=== PATIENT | male | born 1985 | race Caucasian/White ===

== ENCOUNTER 2017-03-24 22:39 | Observation (INO) | payer OTHER ==
[2017-03-24] MEDS ORDERED: Ondansetron 4 MG/2 ML SDV IVPUSH ONE (22:55)
[2017-03-24] MEDS ORDERED: Sodium Chloride 0.9% 1,000 ML IV STA (22:55)
[2017-03-24] MEDS ORDERED: Sodium Chloride 0.9% 10 ML Syringe FLUSH PRN (22:55)
[2017-03-24] MEDS ORDERED: HYDROmorphone 1 MG/ML Syringe IVPUSH ONE ×2 (22:56→23:53)
--- NOTE | 2017-03-25 00:05 | EDM.PDOC ---
ED HPI GENERAL MEDICAL PROBLEM - General Chief Complaint: Abdominal Pain Stated Complaint: POSS GULLBLADDER PAIN Time Seen by Provider: 03/24/17 22:52 Source of Information: Reports: Patient History Limitations: Reports: No Limitations - History of Present Illness INITIAL COMMENTS - FREE TEXT/NARRATIVE: The patient presents with RUQ abdominal pain and nausea. This started last week Saturday. He was in [place] and right after eating dinner he developed the pain. He had an US done that showed stones. He saw Dr Darling and he is scheduled to have his gallbladder removed tomorrow at noon. He ate dinner tonight around 8:30 and the pain returned. He has nausea but no vomiting. He has no fever or chills. He has no chest pain or shortness of breath. Onset: Sudden Duration: Hour(s): Location: Reports: Abdomen (RUQ) Quality: Reports: Sharp Severity: Severe Improves with: Reports: None Worsens with: Reports: None Context: Reports: Other (This started after he ate) Associated Symptoms: Reports: Nausea/Vomiting. Denies: Chest Pain, Cough, Fever /Chills, Headaches, Shortness of Breath Right Abdomen Pain Score (Numeric/FACES): 8 - Related Data Allergies Allergy/AdvReac Type Severity Reaction Status Date / Time meloxicam AdvReac Ringing in Verified 03/22/17 12:15 the Ears Home Meds: Home Meds . 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 Musculoskeletal History: Reports: None Neurological History: Reports: None Psychiatric History: Reports: None Endocrine/Metabolic History: Reports: None Hematologic History: Reports: None Immunologic History: Reports: None Oncologic (Cancer) History: Reports: None Dermatologic History: Reports: None - Infectious Disease History Infectious Disease History: Reports: Mononucleosis - Past Surgical History HEENT Surgical History: Reports: Oral Surgery Cardiovascular Surgical History: Reports: None Respiratory Surgical History: Reports: None GI Surgical History: Reports: Hernia Repair/Other Male Surgical History: Reports: None Endocrine Surgical History: Reports: None Neurological Surgical History: Reports: None Musculoskeletal Surgical History: Reports: None Oncologic Surgical History: Reports: None Dermatological Surgical History: Reports: None Social & Family History - Family History Family Medical History: Noncontributory - Tobacco Use Smoking Status *Q: Never Smoker - Caffeine Use Caffeine Use: Reports: None - Recreational Drug Use Recreational Drug Use: No Drug Use in Last 12 Months: No ED ROS GENERAL - Review of Systems Review Of Systems: See Below Constitutional: Reports: No Symptoms HEENT: Reports: No Symptoms Respiratory: Reports: No Symptoms Cardiovascular: Reports: No Symptoms Endocrine: Reports: No Symptoms GI/Abdominal: Reports: Abdominal Pain, Nausea. Denies: Diarrhea, Vomiting : Reports: No Symptoms Musculoskeletal: Reports: No Symptoms Skin: Reports: No Symptoms Neurological: Reports: No Symptoms ED EXAM, GI/ABD - Physical Exam Exam: See Below Exam Limited By: No Limitations General Appearance: Alert, No Apparent Distress Ears: Normal External Exam Nose: Normal Inspection Head: Atraumatic, Normocephalic Neck: Normal Inspection Respiratory/Chest: No Respiratory Distress, Lungs Clear, Normal Breath Sounds Cardiovascular: Regular Rate, Rhythm, No Edema, No Murmur GI/Abdominal Exam: Soft, No Organomegaly, Tender (Moderate to severe pain) Course - Vital Signs Last Recorded V/S: Last Vital Signs Temp 98.0 F 03/24/17 22:51 Pulse 65 03/24/17 22:51 Resp 20 03/24/17 22:51 BP 153/91 H 03/24/17 22:51 Pulse Ox 100 03/24/17 22:51 - Orders/Labs/Meds Orders: Active Orders 24 hr Category Date Time Status Peripheral IV Care [RC] . DIRECTED Care 03/24/17 22:56 Active Sodium Chloride 0.9% [Saline Flush] Med 03/24/17 22:55 Active 10 ml FLUSH ASDIRECTED PRN ED Antiemetic Medication Reflex [OM.PC] Stat Oth 03/24/17 22:55 Ordered Peripheral IV Insertion Adult [OM.PC] Stat Oth 03/24/17 22:55 Ordered Medication Orders Sodium Chloride (Saline Flush) 10 ml FLUSH ASDIRECTED PRN PRN Reason: Keep Vein Open Last Admin: 03/24/17 23:06 Dose: 10 ml Labs: Laboratory Tests 10/22/17 10/22/17 Range/Units 22:05 23:05 WBC 9.79 H (4.23-9.07) K/mm3 RBC 5.75 (4.63-6.08) M/mm3 Hgb 16.1 (13.7-17.5) gm/L Hct 46.9 (40.1-51.0) % MCV 81.6 (79.0-92.2) fl MCH 28.0 (25.7-32.2) pg MCHC 34.3 (32.2-35.5) g/dl RDW Std Deviation 41.3 (35.1-43.9) fL Plt Count 275 (163-337) K/mm3 MPV 10.3 (9.4-12.3) fl Neut % (Auto) 66.2 (34.0-67.9) % Lymph % (Auto) 23.2 (21.8-53.1) % [place] % (Auto) 8.7 (5.3-12.2) % Eos % (Auto) 1.2 (0.8-7.0) Baso % (Auto) 0.5 (0.1-1.2) % Neut # (Auto) 6.48 H (1.78-5.38) K/mm3 Lymph # (Auto) 2.27 (1.32-3.57) K/mm3 [place] # (Auto) 0.85 H (0.30-0.82) K/mm3 Eos # (Auto) 0.12 (0.04-0.54) K/mm3 Baso # (Auto) 0.05 (0.01-0.08) K/mm3 Sodium 142 (136-145) mEq/L Potassium 3.5 (3.5-5.1) mEq/L Chloride 106 (98-107) mEq/L Carbon Dioxide 27 (21-32) mEq/L Anion Gap 12.5 (5-15) BUN 15 (7-18) mg/dL Creatinine 1.3 (0.7-1.3) mg/dL Est Cr Clr Drug Dosing 83.84 mL/min Estimated GFR (MDRD) > 60 (>60) mL/min BUN/Creatinine Ratio 11.5 L (14-18) Glucose 104 (74-106) mg/dL Calcium 9.7 (8.5-10.1) mg/dL Total Bilirubin 0.8 (0.2-1.0) mg/dL AST 75 H (15-37) U/L ALT 95 H (16-63) U/L Alkaline Phosphatase 52 (46-116) U/L Total Protein 7.3 (6.4-8.2) g/dl Albumin 3.9 (3.4-5.0) g/dl Globulin 3.4 gm/dL Albumin/Globulin Ratio 1.2 (1-2) Lipase 268 (73-393) U/L Meds: Medications Generic Name Dose Route Start Last Admin Trade Name Freq PRN Reason Stop Dose Admin Sodium Chloride 10 ml 03/24/17 22:55 03/24/17 23:06 Saline Flush FLUSH 10 ml ASDIRECTED PRN Administration Keep Vein Open Discontinued Medications Generic Name Dose Route Start Last Admin Trade Name Freq PRN Reason Stop Dose Admin Hydromorphone HCl 1 mg 03/24/17 22:56 03/24/17 23:07 Dilaudid IVPUSH 03/24/17 22:57 1 mg ONETIME ONE Administration Hydromorphone HCl 1 mg 03/24/17 23:53 03/25/17 00:09 Dilaudid IVPUSH 03/24/17 23:54 1 mg ONETIME ONE Administration Sodium Chloride 1,000 mls @ 1,000 mls/hr 03/24/17 22:55 03/24/17 23:11 Normal Saline IV 03/24/17 23:54 1,000 mls/hr .BOLUS STA Administration Ondansetron HCl 4 mg 03/24/17 22:55 03/24/17 23:05 Zofran IVPUSH 03/24/17 22:56 4 mg ONETIME ONE Administration - Re-Assessments/Exams Free Text/Narrative Re-Assessment/Exam: 03/25/17 00:06 I ordered an IV NS 1L bolus, zofran 4mg IV, dilaudid 1mg IV, and labs. His WBC was slightly elevated at 9.79. His AST was elevated at 75. His ALT was elevated at 95. Her lipase was negative. He had more pain so I ordered more dilaudid 1mg IV. 03/25/17 01:03 He is still having pain. I ordered dilaudid 0.5mg IV. I do not think I can send him home like this. I will have to admit to observation and have Dr Darling take over in the morning. Departure - Departure Time of Disposition: 01:05 Disposition: Refer to Observation Clinical Impression: Biliary colic Abdominal pain Qualifiers: Abdominal location: right upper quadrant Qualified Code(s): R10.11 - Right upper quadrant pain Cholelithiasis Qualifiers: Cholelithiasis location: gallbladder Cholecystitis presence: without cholecystitis Biliary obstruction: without biliary obstruction Qualified Code(s) : K80.20 - Calculus of gallbladder without cholecystitis without obstruction - Discharge Information - My Orders Last 24 Hours: My Active Orders 03/24/17 22:55 Sodium Chloride 0.9% [Saline Flush] 10 ml FLUSH ASDIRECTED PRN ED Antiemetic Medication Reflex [OM.PC] Stat Peripheral IV Insertion Adult [OM.PC] Stat 03/24/17 22:56 Peripheral IV Care [RC] . DIRECTED - Assessment/Plan Last 24 Hours: My Active Orders 03/24/17 22:55 Sodium Chloride 0.9% [Saline Flush] 10 ml FLUSH ASDIRECTED PRN ED Antiemetic Medication Reflex [OM.PC] Stat Peripheral IV Insertion Adult [OM.PC] Stat 03/24/17 22:56 Peripheral IV Care [RC] . DIRECTED
[2017-03-25] MEDS ORDERED: HYDROmorphone 0.5 MG/0.5 ML Syringe IVPUSH ONE (01:07)
[2017-03-25] MEDS ORDERED: Ondansetron 4 MG/2 ML SDV IVPUSH PRN (01:58)
[2017-03-25] MEDS ORDERED: HYDROmorphone 0.5 MG/0.5 ML Syringe IVPUSH PRN (01:58)
[2017-03-25] MEDS ORDERED: Sodium Chloride 0.9% 1,000 ML IV SCH (02:00)
--- NOTE | 2017-03-25 10:26 | PCM.PREANE ---
Preanesthetic Assessment - Procedure Proposed Procedure: Lap Maddi - Anesthesia/Transfusion/Family Hx Anesthesia History: Prior Anesthesia Without Reaction (wisdom teeth extraction) Family History of Anesthesia Reaction: No Transfusion History: No Prior Transfusion(s) Intubation History: Unknown - Review of Systems General: No Symptoms Pulmonary: No Symptoms Cardiovascular: No Symptoms Gastrointestinal: No Symptoms Neurological: No Symptoms Other: Reports: None - Physical Assessment NPO Status Date: 03/25/17 NPO Status Time: 02:30 Pulse: 84 O2 Sat by Pulse Oximetry: 98 Respiratory Rate: 14 Blood Pressure: 121/68 Temperature: 36.3 C Vital Signs: Last Vital Signs Temp 36.3 C 03/25/17 09:37 Pulse 84 03/25/17 09:37 Resp 14 03/25/17 09:37 BP 121/68 03/25/17 09:37 Pulse Ox 98 03/25/17 09:37 Height: 1.75 m Weight: 106.957 kg ASA Class: 2 Mental Status: Alert & Oriented x3 Airway Class: Mallampati = 2 Dentition: Reports: Normal Dentition Thyro-Mental Finger Breadths: 3 Mouth Opening Finger Breadths: 3 ROM/Head Extension: Full Lungs: Clear to Auscultation, Normal Respiratory Effort Cardiovascular: Regular Rate, Regular Rhythm - Lab Values: Laboratory Last Values WBC 9.79 K/mm3 (4.23-9.07) H 03/24/17 22:05 RBC 5.75 M/mm3 (4.63-6.08) 03/24/17 22:05 Hgb 16.1 gm/L (13.7-17.5) 03/24/17 22:05 Hct 46.9 % (40.1-51.0) 03/24/17 22:05 MCV 81.6 fl (79.0-92.2) 03/24/17 22:05 MCH 28.0 pg (25.7-32.2) 03/24/17 22:05 MCHC 34.3 g/dl (32.2-35.5) 03/24/17 22:05 RDW Std Deviation 41.3 fL (35.1-43.9) 03/24/17 22:05 Plt Count 275 K/mm3 (163-337) 03/24/17 22:05 MPV 10.3 fl (9.4-12.3) 03/24/17 22:05 Neut % (Auto) 66.2 % (34.0-67.9) 03/24/17 22:05 Lymph % (Auto) 23.2 % (21.8-53.1) 03/24/17 22:05 [place] % (Auto) 8.7 % (5.3-12.2) 03/24/17 22:05 Eos % (Auto) 1.2 (0.8-7.0) 03/24/17 22:05 Baso % (Auto) 0.5 % (0.1-1.2) 03/24/17 22:05 Neut # (Auto) 6.48 K/mm3 (1.78-5.38) H 03/24/17 22:05 Lymph # (Auto) 2.27 K/mm3 (1.32-3.57) 03/24/17 22:05 [place] # (Auto) 0.85 K/mm3 (0.30-0.82) H 03/24/17 22:05 Eos # (Auto) 0.12 K/mm3 (0.04-0.54) 03/24/17 22:05 Baso # (Auto) 0.05 K/mm3 (0.01-0.08) 03/24/17 22:05 Sodium 142 mEq/L (136-145) 03/24/17 23:05 Potassium 3.5 mEq/L (3.5-5.1) 03/24/17 23:05 Chloride 106 mEq/L (98-107) 03/24/17 23:05 Carbon Dioxide 27 mEq/L (21-32) 03/24/17 23:05 Anion Gap 12.5 (5-15) 03/24/17 23:05 BUN 15 mg/dL (7-18) 03/24/17 23:05 Creatinine 1.3 mg/dL (0.7-1.3) 03/24/17 23:05 Est Cr Clr Drug Dosing 83.84 mL/min 03/24/17 23:05 Estimated GFR (MDRD) > 60 mL/min (>60) 03/24/17 23:05 BUN/Creatinine Ratio 11.5 (14-18) L 03/24/17 23:05 Glucose 104 mg/dL (74-106) 03/24/17 23:05 Calcium 9.7 mg/dL (8.5-10.1) 03/24/17 23:05 Total Bilirubin 0.8 mg/dL (0.2-1.0) 03/24/17 23:05 AST 75 U/L (15-37) H 03/24/17 23:05 ALT 95 U/L (16-63) H 03/24/17 23:05 Alkaline Phosphatase 52 U/L (46-116) 03/24/17 23:05 Total Protein 7.3 g/dl (6.4-8.2) 03/24/17 23:05 Albumin 3.9 g/dl (3.4-5.0) 03/24/17 23:05 Globulin 3.4 gm/dL 03/24/17 23:05 Albumin/Globulin Ratio 1.2 (1-2) 03/24/17 23:05 Lipase 268 U/L (73-393) 03/24/17 23:05 - Allergies Allergies/Adverse Reactions: Allergies Allergy/AdvReac Type Severity Reaction Status Date / Time meloxicam AdvReac Ringing in Verified 03/25/17 02:16 the Ears - Blood Blood Available: No Product(s) Available: None - Anesthesia Plan Pre-Op Medication Ordered: None - Acknowledgements Anesthesia Type Planned: General Anesthesia Pt an Appropriate Candidate for the Planned Anesthesia: Yes Alternatives and Risks of Anesthesia Discussed w Pt/Guardian: Yes Pt/Guardian Understands and Agrees with Anesthesia Plan: Yes PreAnesthesia Questionnaire HEENT History: Reports: Impaired Vision, Other (See Below) Other HEENT History: WEARS GLASSES/ CONTACTS Cardiovascular History: Reports: None Respiratory History: Reports: None Gastrointestinal History: Reports: Cholelithiasis Genitourinary History: Reports: None 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 Musculoskeletal History: Reports: None Neurological History: Reports: None Psychiatric History: Reports: None Endocrine/Metabolic History: Reports: None Hematologic History: Reports: None Immunologic History: Reports: None Oncologic (Cancer) History: Reports: None Dermatologic History: Reports: None - Infectious Disease History Infectious Disease History: Reports: Mononucleosis - Past Surgical History HEENT Surgical History: Reports: Oral Surgery Cardiovascular Surgical History: Reports: None Respiratory Surgical History: Reports: None GI Surgical History: Reports: Hernia Repair/Other Other GI Surgeries/Procedures: hernia repair as an Male Surgical History: Reports: None Endocrine Surgical History: Reports: None Neurological Surgical History: Reports: None Musculoskeletal Surgical History: Reports: None Oncologic Surgical History: Reports: None Dermatological Surgical History: Reports: None - SUBSTANCE USE Smoking Status *Q: Never Smoker Second Hand Smoke Exposure: No Recreational Drug Use History: No - HOME MEDS Home Medications: Home Meds Hydrocodone/Acetaminophen [Hydrocodon-Acetaminophen 5-325] 1 - 2 tab PO Q6H PRN 03/25/17 [History] - CURRENT (IN HOUSE) MEDS Current Meds: Current Medications Hydromorphone HCl (Dilaudid) 0.5 mg IVPUSH Q1H PRN PRN Reason: Pain Sodium Chloride (Normal Saline) 1,000 mls @ 100 mls/hr IV ASDIRECTED YANG Last Admin: 03/25/17 02:26 Dose: 100 mls/hr Ondansetron HCl (Zofran) 4 mg IVPUSH Q6H PRN PRN Reason: Nausea Sodium Chloride (Saline Flush) 10 ml FLUSH ASDIRECTED PRN PRN Reason: Keep Vein Open Last Admin: 03/24/17 23:06 Dose: 10 ml Discontinued Medications Hydromorphone HCl (Dilaudid) 1 mg IVPUSH ONETIME ONE Stop: 03/24/17 22:57 Last Admin: 03/24/17 23:07 Dose: 1 mg Hydromorphone HCl (Dilaudid) 1 mg IVPUSH ONETIME ONE Stop: 03/24/17 23:54 Last Admin: 03/25/17 00:09 Dose: 1 mg Hydromorphone HCl (Dilaudid) 0.5 mg IVPUSH ONETIME ONE Stop: 03/25/17 01:08 Last Admin: 03/25/17 01:23 Dose: 0.5 mg Sodium Chloride (Normal Saline) 1,000 mls @ 1,000 mls/hr IV .BOLUS STA Stop: 03/24/17 23:54 Last Admin: 03/24/17 23:11 Dose: 1,000 mls/hr Ondansetron HCl (Zofran) 4 mg IVPUSH ONETIME ONE Stop: 03/24/17 22:56 Last Admin: 03/24/17 23:05 Dose: 4 mg
--- NOTE | 2017-03-25 10:32 | PCM.HP ---
H&P History of Present Illness - General Date of Service: 03/25/17 Admit Problem/Dx: Admission Diagnosis/Problem Admission Diagnosis/Problem Cholecystitis Source of Information: Patient - History of Present Illness Initial Comments - Free Text/Narative: 31-year-old male was seen in my office on Saturday with a history of biliary colic and known gallstones by ultrasound. He is scheduled for an elective laparoscopic cholecystectomy this afternoon. On Saturday however he experienced severe right upper quadrant abdominal pain and presented to the emergency room for pain relief. He was admitted for observation and IV analgesics. Right Abdomen Pain Score (Numeric/FACES): 3 - Related Data Allergies/Adverse Reactions: Allergies Allergy/AdvReac Type Severity Reaction Status Date / Time meloxicam AdvReac Ringing in Verified 03/25/17 02:16 the Ears Home Medications: Home Meds Hydrocodone/Acetaminophen [Hydrocodon-Acetaminophen 5-325] 1 - 2 tab PO Q6H PRN 03/25/17 [History] Past Medical History HEENT History: Reports: Impaired Vision, Other (See Below) Other HEENT History: WEARS GLASSES/ CONTACTS Cardiovascular History: Reports: None Respiratory History: Reports: None Gastrointestinal History: Reports: Cholelithiasis Genitourinary History: Reports: None 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 Musculoskeletal History: Reports: None Neurological History: Reports: None Psychiatric History: Reports: None Endocrine/Metabolic History: Reports: None Hematologic History: Reports: None Immunologic History: Reports: None Oncologic (Cancer) History: Reports: None Dermatologic History: Reports: None - Infectious Disease History Infectious Disease History: Reports: Mononucleosis - Past Surgical History HEENT Surgical History: Reports: Oral Surgery Cardiovascular Surgical History: Reports: None Respiratory Surgical History: Reports: None GI Surgical History: Reports: Hernia Repair/Other Other GI Surgeries/Procedures: hernia repair as an infant Male Surgical History: Reports: None Endocrine Surgical History: Reports: None Neurological Surgical History: Reports: None Musculoskeletal Surgical History: Reports: None Oncologic Surgical History: Reports: None Dermatological Surgical History: Reports: None Social & Family History - Family History Family Medical History: Noncontributory Cardiac: Reports: High Cholesterol, Hypertension, [place] Endocrine/Metabolic: Reports: Diabetes, type II Oncologic: Reports: Colon - Tobacco Use Smoking Status *Q: Never Smoker Second Hand Smoke Exposure: No - Caffeine Use Caffeine Use: Reports: None - Recreational Drug Use Recreational Drug Use: No Drug Use in Last 12 Months: No H&P Review of Systems - Review of Systems: Review Of Systems: ROS reveals no pertinent complaints other than HPI. Exam - Exam Exam: See Below - Vital Signs Vital Signs: Last Vital Signs Temp 36.3 C 03/25/17 10:26 Pulse 84 03/25/17 10:26 Resp 14 03/25/17 10:26 BP 121/68 03/25/17 10:26 Pulse Ox 98 03/25/17 10:26 Weight: 106.957 kg - Exam General: Alert, Oriented, Cooperative HEENT: PERRLA, Hearing Intact, Mucosa Moist & [place], Nares Patent, Normal Nasal Septum, Posterior Pharynx Clear, Conjunctiva Clear, EOMI, EACs Clear, TMs Clear Neck: Supple, Trachea Midline Lungs: Normal Respiratory Effort Cardiovascular: Regular Rate, Regular Rhythm GI/Abdominal Exam: Soft, Non-Tender (Male) Exam: Deferred Rectal (Males) Exam: Deferred Back Exam: Normal Inspection Extremities: Normal Inspection Skin: Warm, Dry, Intact Neuro Extensive - Mental Status: Alert, Oriented x3, Normal Mood/Affect Psychiatric: Alert - Patient Data Result Diagrams: 03/24/17 22:05 03/24/17 23:05 *Q Meaningful Use (ADM) - VTE *Q VTE Criteria *Q: - Stroke *Q Stroke Criteria *Q: - AMI *Q AMI Criteria *Q: - Problem List (1) Abdominal pain SNOMED Code(s): 93676716 ICD Code: R10.9 - UNSPECIFIED ABDOMINAL PAIN Status: Acute Priority: Medium Current Visit: Yes Qualifiers: Abdominal location: right upper quadrant Qualified Code(s): R10.11 - Right upper quadrant pain (2) Biliary colic SNOMED Code(s): 09073748 ICD Code: K80.50 - CALCULUS OF BILE DUCT W/O CHOLANGITIS OR CHOLECYST W/O OBST Status: Chronic Priority: Medium Current Visit: Yes (3) Cholelithiasis SNOMED Code(s): 318847617 ICD Code: K80.20 - CALCULUS OF GALLBLADDER W/O CHOLECYSTITIS W/O OBSTRUCTION Status: Chronic Priority: Medium Current Visit: Yes Qualifiers: Cholelithiasis location: gallbladder Cholecystitis presence: without cholecystitis Biliary obstruction: without biliary obstruction Qualified Code(s): K80.20 - Calculus of gallbladder without cholecystitis without obstruction Problem List Initiated/Reviewed/Updated: Yes Orders Last 24hrs: Active Orders 24 hr Category Date Time Status Admission Status [Patient Status] [ADT] Routine ADT 03/25/17 01:33 Active Antiembolic Devices [RC] PER UNIT ROUTINE Care 03/25/17 09:38 Active Bedrest Bathroom Privileges [RC] ASDIRECTED Care 03/25/17 01:58 Active Oxygen Therapy [RC] ASDIRECTED Care 03/25/17 01:58 Active HYDROmorphone [Dilaudid] Med 03/25/17 01:58 Active 0.5 mg IVPUSH Q1H PRN Ondansetron [Zofran] Med 03/25/17 01:58 Active 4 mg IVPUSH Q6H PRN Sodium Chloride 0.9% [Normal Saline] 1,000 ml Med 03/25/17 02:00 Active IV ASDIRECTED Sequential Compression Device [OM.PC] Routine Oth 03/25/17 09:38 Ordered Resuscitation Status Routine Resus Stat 03/25/17 01:58 Ordered Medication Orders Hydromorphone HCl (Dilaudid) 0.5 mg IVPUSH Q1H PRN PRN Reason: Pain Sodium Chloride (Normal Saline) 1,000 mls @ 100 mls/hr IV ASDIRECTED YANG Last Admin: 03/25/17 02:26 Dose: 100 mls/hr Ondansetron HCl (Zofran) 4 mg IVPUSH Q6H PRN PRN Reason: Nausea Sodium Chloride (Saline Flush) 10 ml FLUSH ASDIRECTED PRN PRN Reason: Keep Vein Open Last Admin: 03/24/17 23:06 Dose: 10 ml Assessment/Plan Comment:: imp/plan: Symptomatic cholelithiasis with recommended cholecystectomy which will be performed later today.
[2017-03-25] MEDS ORDERED: Bupivacaine 0.5%/EPINEPHrine 1:200,000 50 ML MDV ONE (11:25)
[2017-03-25] MEDS ORDERED: Lidocaine 1% with EPINEPHrine 1:100,000 20 ML MDV ONE (11:25)
[2017-03-25] MEDS ORDERED: fentaNYL 100 MCG/2 ML SDV IVPUSH PRN (12:42)
[2017-03-25] MEDS ORDERED: diphenhydrAMINE 50 MG/ML SDV IVPUSH PRN (12:42)
--- NOTE | 2017-03-25 13:18 | PCM.OPNOTE ---
- General Post-Op/Procedure Note Date of Surgery/Procedure: 03/25/17 Operative Procedure(s): Laparoscopic cholecystectomy Findings: Acutely edematous gallbladder with mild distention containing multiple stones Pre Op Diagnosis: Biliary colic with chronic cholecystitis secondary to cholelithiasis Post-Op Diagnosis: Same Anesthesia Technique: General ET Tube, Local Primary Surgeon: López Darling Pathology: Gallbladder and contents EBL in mLs: 5 Complications: None Condition: Good Free Text/Narrative:: Intake & Output 03/24/17 03/25/17 03/25/17 22:59 06:59 14:59 Intake Total 484 Balance 484 After adequate general endotracheal tube anesthesia was obtained the patient's abdomen was prepped and draped in the usual fashion for a laparoscopic cholecystectomy. After local analgesia was given above the umbilicus a supraumbilical incision was made with a 15 blade down to the linea alba. This was entered sharply followed by insertion of a 12 mm camera port. CO2 pneumoperitoneum was obtained and 3--5 mm working ports were placed along the right costal margin. The dome of the gallbladder was grasped and it and the liver were retracted in a cephalad direction. I used the cautery to separate out the cystic duct and cystic artery. These structures were clipped in continuity with 5 mm clips and divided sharply. The gallbladder was taken down in a retrograde fashion with the hook cautery. The gallbladder was placed in a specimen bag and removed through the umbilicus. I irrigated out the gallbladder bed assuring hemostasis with with spot cautery. I decannulated the abdomen under direct vision and there was no bleeding from the port sites. Resin Filterer photographs taken for the patient and for the record. The camera port was closed with an 0 Vicryl [id number] suture. The subcutaneous tissues and skin were closed with Vicryl as well. Steri-Strips and gauze were used for the dressing. There were no procedural complications.
--- NOTE | 2017-03-25 13:28 | PCM.POSTAN ---
POST ANESTHESIA ASSESSMENT - MENTAL STATUS Mental Status: Alert, Oriented - VITAL SIGNS Pulse Rate: 100 SaO2: 96 Resp Rate: 12 Blood Pressure: 145/56 Temperature: 36.7 C - RESPIRATORY Respiratory Status: Respiratory Rate WNL, Airway Patent, O2 Saturation Stable, Supplemental Oxygen - CARDIOVASCULAR CV Status: Pulse Rate WNL, Blood Pressure Stable - GASTROINTESTINAL GI Status: No Symptoms - PAIN Pain Score: 4 - POST OP HYDRATION Hydration Status: Adequate & Stable
[2017-03-25] MEDS ORDERED: Haloperidol Lactate 5 MG/ML SDV IVPUSH ONE (13:45)
[2017-03-25] MEDS: HYDROmorphone 0.5 MG/0.5 ML Syringe IVPUSH PRN ×2 (13:51→14:12)
--- NOTE | 2017-03-29 13:11 | PCM.DCSUM1 ---
Discharge Summary - Hospital Course Free Text/Narrative:: The patient was scheduled for surgery for Saturday at noon but was admitted about 8 hours earlier after a visit to the emergency room because of severe pain. He was taken to surgery and underwent an uneventful laparoscopic cholecystectomy. He was discharged from the PACU. - Discharge Data Discharge Date: 03/25/17 Discharge Disposition: Home, Self-Care 01 Condition: Good - Discharge Diagnosis/Problem(s) (1) Abdominal pain SNOMED Code(s): 60817458 ICD Code: R10.9 - UNSPECIFIED ABDOMINAL PAIN Status: Acute Priority: Medium Qualifiers: Abdominal location: right upper quadrant Qualified Code(s): R10.11 - Right upper quadrant pain (2) Biliary colic SNOMED Code(s): 21577922 ICD Code: K80.50 - CALCULUS OF BILE DUCT W/O CHOLANGITIS OR CHOLECYST W/O OBST Status: Resolved Priority: Medium (3) Cholelithiasis SNOMED Code(s): 885392123 ICD Code: K80.20 - CALCULUS OF GALLBLADDER W/O CHOLECYSTITIS W/O OBSTRUCTION Status: Resolved Priority: Medium Qualifiers: Cholelithiasis location: gallbladder Cholecystitis presence: without cholecystitis Biliary obstruction: without biliary obstruction Qualified Code(s): K80.20 - Calculus of gallbladder without cholecystitis without obstruction - Patient Summary/Data Operative Procedure(s) Performed: Laparoscopic cholecystectomy Complications: None Hospital Course: Uneventful - Patient Instructions Diet, Other: low fat diet for 6 weeks Activity: As Tolerated, No Lifting Over 20 Pounds, No Strenuous Activities, Rest and Relax Today Driving: Do Not Drive Driving, Other: for 48 hours or while on narcotics Showering/Bathing: May Shower in 3 Days Showering/Bathing, Other: remove gauze then shower. leave steristrips in place. Wound/Incision Care: Keep Operative Site/Wound Site Clean and Dry Notify Provider of: Fever, Increased Pain, Nausea and/or Vomiting - Discharge Plan Home Medications: Home Meds Hydrocodone/Acetaminophen [Hydrocodon-Acetaminophen 5-325] 1 - 2 tab PO Q6H PRN 03/25/17 [History] Patient Handouts: Laparoscopic Cholecystectomy, Care After, Cholelithiasis, [id number], Laparoscopic Cholecystectomy, Care After, [id number], Cholecystitis, [id number] Forms: ED Department Discharge Referrals: Autumn Medina PA-C [Primary Care Provider] - López Darling MD [Physician] - 04/09/17 11:30 am (You will have a follow up appointment on April 09 at 11:[address] Darling.) - Discharge Summary/Plan Comment DC Time >30 min.: No Discharge Summary/Plan Comment: Routine postoperative instructions were provided to the patient verbally and in writing. - Patient Data Vitals - Most Recent: Last Vital Signs Temp 36.6 C 03/25/17 15:00 Pulse 65 03/25/17 15:00 Resp 14 03/25/17 15:00 BP 126/81 03/25/17 15:00 Pulse Ox 95 03/25/17 15:00 Weight - Most Recent: 106.957 kg Med Orders - Current: Current Medications Discontinued Medications Bupivacaine HCl/Epinephrine Bitart (Marcaine 0.5%/Epinephrine 1:200,000) Confirm Administered Dose 50 ml .ROUTE .STK-MED ONE Stop: 03/25/17 11:26 Last Admin: 03/25/17 12:24 Dose: 12 ml Diphenhydramine HCl (Benadryl) 25 mg IVPUSH Q6H PRN PRN Reason: Pruritis Stop: 03/25/17 23:00 Fentanyl (Sublimaze) 50 mcg IVPUSH Q5M PRN PRN Reason: Pain Stop: 03/25/17 18:00 Haloperidol Lactate (Haldol) 1 mg IVPUSH ONETIME ONE Stop: 03/25/17 13:46 Hydromorphone HCl (Dilaudid) 1 mg IVPUSH ONETIME ONE Stop: 03/24/17 22:57 Last Admin: 03/24/17 23:07 Dose: 1 mg Hydromorphone HCl (Dilaudid) 1 mg IVPUSH ONETIME ONE Stop: 03/24/17 23:54 Last Admin: 03/25/17 00:09 Dose: 1 mg Hydromorphone HCl (Dilaudid) 0.5 mg IVPUSH ONETIME ONE Stop: 03/25/17 01:08 Last Admin: 03/25/17 01:23 Dose: 0.5 mg Hydromorphone HCl (Dilaudid) 0.5 mg IVPUSH Q1H PRN PRN Reason: Pain Hydromorphone HCl (Dilaudid) 0.5 mg IVPUSH Q15M PRN PRN Reason: severe pain Stop: 03/25/17 12:43 Last Admin: 03/25/17 14:12 Dose: 0.5 mg Sodium Chloride (Normal Saline) 1,000 mls @ 1,000 mls/hr IV .BOLUS STA Stop: 03/24/17 23:54 Last Admin: 03/24/17 23:11 Dose: 1,000 mls/hr Sodium Chloride (Normal Saline) 1,000 mls @ 100 mls/hr IV ASDIRECTED YANG Last Admin: 03/25/17 02:26 Dose: 100 mls/hr Lidocaine/Epinephrine (Xylocaine 1% With Epinephrine 1:100,000) Confirm Administered Dose 20 ml .ROUTE .STK-MED ONE Stop: 03/25/17 11:26 Last Admin: 03/25/17 12:24 Dose: 12 ml Ondansetron HCl (Zofran) 4 mg IVPUSH ONETIME ONE Stop: 03/24/17 22:56 Last Admin: 03/24/17 23:05 Dose: 4 mg Ondansetron HCl (Zofran) 4 mg IVPUSH Q6H PRN PRN Reason: Nausea Last Admin: 03/25/17 13:57 Dose: 4 mg Sodium Chloride (Saline Flush) 10 ml FLUSH ASDIRECTED PRN PRN Reason: Keep Vein Open Last Admin: 03/24/17 23:06 Dose: 10 ml *Q Meaningful Use (DIS) - VTE *Q VTE Criteria *Q: - Stroke *Q Stroke Criteria *Q: - AMI *Q AMI Criteria *Q:
== END 2017-03-25 15:30 | disposition home or self-care (01) ==
LOC: JD.ED 22:39 → JD.MS 03-25 00:55
PROVIDERS: ADMIT Surgery; ATTEND Surgery
DX: K80.10 Calculus of gallbladder with chronic cholecystitis without obstruction (principal); Z88.6 Allergy status to analgesic agent; Z98.818 Other dental procedure status; Z98.890 Other specified postprocedural states; Z86.19 Personal history of other infectious and parasitic diseases
CPT/HCPCS: 36415; 47562; 80053; 83690; 85025; 96361; 96374; 96375; 96376; 99285; G0378; J1170; J2405; J7040; J7050; 00790

== ENCOUNTER 2017-05-02 07:11 | Emergency (ER) | payer OTHER ==
--- NOTE | 2017-05-02 07:22 | EDM.PDOC ---
ED HPI GENERAL MEDICAL PROBLEM - General Chief Complaint: Laceration Stated Complaint: RIGHT KNEE LAC Time Seen by Provider: 05/02/17 07:21 Source of Information: Reports: Patient History Limitations: Reports: No Limitations - History of Present Illness INITIAL COMMENTS - FREE TEXT/NARRATIVE: 31-year-old male presents the ED with an acute laceration to distal left thigh just superior to his knee. Patient states he actually slept with his pocket knife with resultant 2.5 cm laceration to the anterior aspect of his thigh just above the patella. Range of motion is full. Injury occurred within the hour. He reports last tetanus toxoid was administered about a year and half ago. Onset: Today Onset Date: 05/02/17 Onset Time: 06:00 Duration: Minutes: Location: Reports: Lower Extremity, Right (Right leg with a laceration just above the patella anteriorly.) Quality: Reports: Ache, Stabbing Severity: Mild Improves with: Reports: None Worsens with: Reports: None Context: Reports: Trauma (Slipped with jackknife.). Denies: Activity, Exercise , Lifting, Sick Contact Associated Symptoms: Reports: No Other Symptoms - Related Data Allergies Allergy/AdvReac Type Severity Reaction Status Date / Time meloxicam AdvReac Ringing in Verified 05/02/17 07:21 the Ears Home Meds: Home Meds . [No Known Home Meds] 05/02/17 [History] Past Medical History HEENT History: Reports: Impaired Vision, Other (See Below) Other HEENT History: WEARS GLASSES/ CONTACTS Cardiovascular History: Reports: None Respiratory History: Reports: None Gastrointestinal History: Reports: Cholelithiasis Genitourinary History: Reports: None HEALTHCARE ARCHITECT History: Reports: None Musculoskeletal History: Reports: None Neurological History: Reports: None Psychiatric History: Reports: None Endocrine/Metabolic History: Reports: None Hematologic History: Reports: None Immunologic History: Reports: None Oncologic (Cancer) History: Reports: None Dermatologic History: Reports: None - Infectious Disease History Infectious Disease History: Reports: Mononucleosis - Past Surgical History HEENT Surgical History: Reports: Oral Surgery Cardiovascular Surgical History: Reports: None Respiratory Surgical History: Reports: None GI Surgical History: Reports: Hernia Repair/Other Other GI Surgeries/Procedures: hernia repair as an Male Surgical History: Reports: None Endocrine Surgical History: Reports: None Neurological Surgical History: Reports: None Musculoskeletal Surgical History: Reports: None Oncologic Surgical History: Reports: None Dermatological Surgical History: Reports: None Social & Family History - Family History Family Medical History: Noncontributory Cardiac: Reports: High Cholesterol, Hypertension, [place] Endocrine/Metabolic: Reports: Diabetes, type II Oncologic: Reports: Colon - Tobacco Use Smoking Status *Q: Never Smoker Second Hand Smoke Exposure: No - Caffeine Use Caffeine Use: Reports: None - Recreational Drug Use Recreational Drug Use: No Drug Use in Last 12 Months: No - Living Situation & Occupation Living situation: Reports: Occupation: Employed ED ROS GENERAL - Review of Systems Review Of Systems: See Below Constitutional: Reports: No Symptoms HEENT: Reports: No Symptoms Respiratory: Reports: No Symptoms Cardiovascular: Reports: No Symptoms Endocrine: Reports: No Symptoms GI/Abdominal: Reports: No Symptoms : Reports: No Symptoms Musculoskeletal: Reports: No Symptoms Skin: Reports: No Symptoms Neurological: Reports: No Symptoms Psychiatric: Reports: No Symptoms Hematologic/Lymphatic: Reports: No Symptoms Immunologic: Reports: No Symptoms ED EXAM, SKIN/RASH Exam: See Below Exam Limited By: No Limitations General Appearance: Alert, WD/WN, No Apparent Distress Extremities: Other (Has a 1.8-2 cm laceration just superior to the patella anterio medial ) Neurological: Alert (right thigh. It is nice clean linear laceration. ) Psychiatric: Normal Affect, Normal Mood Skin: Warm, Dry, Intact, Normal Color, Wound/Incision (Wound anterior aspect of the right distal thigh just above the patella.) ED SKIN PROCEDURES - Laceration/Wound Repair Right Lower Anterior Distal Leg Lac/Wound length In cm: 2.5 (Distal anterior) Appearance: Subcutaneous ( right thigh.), Clean Anesthetic Type: Local Local Anesthesia - Lidocaine (Xylocaine): 1% Plain Skin Prep: Saline Closed with: Sutures Suture Size: 4-0 # of Sutures: 5 Suture Type: Nylon, Interrupted, Simple Course - Vital Signs Last Recorded V/S: Last Vital Signs Temp 36.6 C 05/02/17 07:16 Pulse 86 05/02/17 07:16 Resp 18 05/02/17 07:16 BP 129/85 05/02/17 07:16 Pulse Ox 100 05/02/17 07:16 - Orders/Labs/Meds Orders: Active Orders 24 hr Category Date Time Status Vaccines to be Administered [RC] PER UNIT ROUTINE Care 05/02/17 07:23 Active Meds: Medications Discontinued Medications Generic Name Dose Route Start Last Admin Trade Name Donald PRN Reason Stop Dose Admin Diphtheria/Tetanus/Acell Pertussis 0.5 ml 05/02/17 07:23 05/02/17 07:29 Adacel IM 05/02/17 07:24 Not Given .ONCE ONE Lidocaine HCl 10 ml 05/02/17 07:23 05/02/17 07:28 Xylocaine 1% INJECT 05/02/17 07:24 10 ml ONETIME ONE Administration - Radiology Interpretation Free Text/Narrative:: 31-year-old male states that he slipped with his jackknife with resultant linear laceration across his anterior distal thigh superior to the patella. Has approximately 2 .5cm linear laceration in this area. Wound will be cleansed and then sutured under local anesthetic. - Re-Assessments/Exams Free Text/Narrative Re-Assessment/Exam: 05/02/17 07:43 2.5 cm laceration right anterior distal thigh sutured under local anesthetic 5. Treatment at home be daily cleanse with soap and water. Then topical antibiotic placement such as bacitracin or Polysporin and a bandage to cover to prevent rubbing on clothing. Sutures will need to be removed in 10 days' time. Departure - Departure Time of Disposition: 07:44 Disposition: Home, Self-Care 01 Condition: Fair Clinical Impression: Laceration of right thigh - Discharge Information Referrals: PCP,None [Primary Care Provider] - Forms: ED Department Discharge Additional Instructions: Evaluation the emergent today in regards to a 2.5 cm laceration to the right lower anterior thigh. Caused by a slipped with a jackknife. Wound was cleansed and then sutured under local anesthetic. Treatment at home is to daily cleanse the wound with soap and water. Showering is okay. Wound should not be soaked under water however until the sutures are removed. Daily cleanse the wound was soap and water and then apply topical antibiotic such as bacitracin or Polysporin once daily with a bandage to keep clean. Sutures need to be removed in 10 days' time. - My Orders Last 24 Hours: My Active Orders 05/02/17 07:23 Vaccines to be Administered [RC] PER UNIT ROUTINE - Assessment/Plan Last 24 Hours: My Active Orders 05/02/17 07:23 Vaccines to be Administered [RC] PER UNIT ROUTINE
[2017-05-02] MEDS ORDERED: Lidocaine 1% 10 ML MDV INJECT ONE (07:23)
[2017-05-02] MEDS ORDERED: Diphtheria,Pertussis(Acell),Tetanus Vaccine 0.5 ML SDV IM ONE (07:23)
== END 2017-05-02 08:00 | disposition home or self-care (01) ==
LOC: JD.ED 07:11
DX: S71.111A Laceration without foreign body, right thigh, initial encounter (principal); Z23 Encounter for immunization; W26.0XXA Contact with knife, initial encounter; Z88.8 Allergy status to other drugs, medicaments and biological substances
CPT/HCPCS: 12001; 90471; 99282-25; 99283-25

== ENCOUNTER 2020-02-23 07:28 | Emergency (ER) | payer OTHER ==
--- NOTE | 2020-02-23 08:27 | EDM.PDOC ---
ED HPI GENERAL MEDICAL PROBLEM - General Chief Complaint: Neurological Problem Stated Complaint: SEIZURE Time Seen by Provider: 02/23/20 07:54 Source of Information: Reports: Patient History Limitations: Reports: No Limitations - History of Present Illness INITIAL COMMENTS - FREE TEXT/NARRATIVE: Mr. Prasad is a very pleasant 34-year-old gentleman who now presents to the ED complaining of 2 "seizures" this morning. He states that at 03:00, he was falling asleep, when he felt like he was still awake, but suddenly could not speak, and he felt like he was paralyzed. The episode lasted about 20 seconds. He states that the episode freaked him out, and he did not fall asleep again until around 04:30 when it happened again, this time lasting only about 10 seconds. He states that he was very shaken afterwards, however, during these events, he did not bite his tongue or lose continence of bowel or bladder. He states that his was sleeping in the bed next to him, and did not actually witness what happened. No prior similar symptoms. The patient states that he developed a dull headache felt on the top right of his head after the first event, which persists now. He denies having any visual changes, photophobia, phonophobia, nausea, tingling, numbness, or weakness. Here in the ED, the patient's initial BP is found to be modestly elevated at 161/100, otherwise, he is hemodynamically stable, afebrile, saturating 97% on room air. The patient states that he has chronic diarrhea which is being worked up for possible IBS. Otherwise, prior to 03:00, the patient denies having a recent fever, chills, sore throat, ear pain, nasal or sinus congestion, cough, dyspnea, chest pain, palpitations, nausea, vomiting, constipation, abdominal pain, urinary symptoms, recent weight gain or weight loss, recent bloody bowel movements or black bowel movements, recent joint aches, headaches, or rashes. The patient's PCP is Dr. Neville Bañuelos. He does not recall the name of his Environmental Health Specialist at [facility]. Headache Pain Score (Numeric/FACES): 3 - Related Data Allergies Allergy/AdvReac Type Severity Reaction Status Date / Time meloxicam AdvReac Ringing in Verified 02/23/20 07:48 the Ears Home Meds: Home Meds . [Unable to Verify Home Med List] 02/23/20 [History] Past Medical History HEENT History: Reports: Impaired Vision (wears glasses, contacts) Gastrointestinal History: Reports: GERD - Infectious Disease History Infectious Disease History: Reports: Mononucleosis - Past Surgical History HEENT Surgical History: Reports: LASIK (bilateral), Oral Surgery (wisdom teeth extraction) GI Surgical History: Reports: Cholecystectomy (2017), Hernia Repair/Other (as an ) Social & Family History - Family History Family Medical History: Noncontributory Cardiac: Reports: High Cholesterol, Hypertension, [place] Endocrine/Metabolic: Reports: Diabetes, type II Oncologic: Reports: Colon - Tobacco Use Smoking Status *Q: Never Smoker - Alcohol Use Alcohol Use History: Yes Days Per Week of Alcohol Use: 4 Number of Drinks Per Day: 3 Total Drinks Per Week: 12 - Recreational Drug Use Recreational Drug Use: No - Living Situation & Occupation Living situation: Reports: , with Spouse, with Family (1 child) 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 ED EXAM, NEURO - Physical Exam Exam: See Below Exam Limited By: No Limitations General Appearance: Alert, WD/WN, No Apparent Distress Eye Exam: Bilateral Eye: EOMI, Normal Inspection Ears: Normal External Exam, Normal Canal, Hearing Grossly Normal, Normal TMs Nose: Normal Inspection, Normal Mucosa, No Blood Throat/Mouth: Normal Inspection, Normal Lips, Normal Teeth, Normal Gums, Normal Oropharynx, Normal Voice, No Airway Compromise Head Exam: Atraumatic, Normocephalic Neck: Normal Inspection, Supple, Non-Tender, Full Range of Motion. No: Lymphadenopathy (L), Lymphadenopathy (R) Respiratory/Chest: No Respiratory Distress, Lungs Clear, Normal Breath Sounds, No Accessory Muscle Use Cardiovascular: Normal Peripheral Pulses, Regular Rate, Rhythm, No Edema, No Gallop, No JVD, No Murmur, No Rub GI/Abdominal: Normal Bowel Sounds, Soft, Non-Tender, No Organomegaly, No Distention, No Abnormal Bruit, No Mass Neurological: Alert, Normal Dorsiflexion, CN II-XII Intact, Normal Plantar Flexion, No Motor/Sensory Deficits, Oriented x 3 Back Exam: Normal Inspection, Full Range of Motion, NT Extremities: Normal Inspection, Normal Range of Motion, No Pedal Edema, Normal Capillary Refill Psychiatric: Normal Affect Skin Exam: Warm, Dry, Intact, Normal Color, No Rash Course - Vital Signs Last Recorded V/S: Last Vital Signs Temp 36.4 C 02/23/20 07:43 Pulse 76 02/23/20 07:43 Resp 15 02/23/20 07:43 BP 161/100 H 02/23/20 07:43 Pulse Ox 97 02/23/20 07:43 - Re-Assessments/Exams Free Text/Narrative Re-Assessment/Exam: 02/23/20 08:16 As above, the patient reports having 2 episodes this morning, the first around 3:00 lasting 20 seconds, the second around 4:30 this morning lasting 10 seconds, wherein he was aware of what was going on, but he could not speak and he felt like his body was paralyzed, just as he was falling asleep, on both occasions. There was an article in the journal Science in 2004 entitled "Breakdown of cortical effective conductivity during sleep" which described how the brain disconnects the motor fibers from the higher centers so that people do not act out what they are dreaming i.e. they do not actually try to run if they are dreaming that they are running, etc. Ordinarily, this cutoff occurs just after a person falls asleep, however, in this patient's case, I suspect that it occurred just before he fell asleep, leading to the symptoms that he described. That being said, it might be best if a Neurologist concurred, therefore I will refer him to Mary Capps, LEVAR at [facility]. Since the patient's neurologic examination is completely normal, I do not see an indication for any blood work or imaging studies being performed at this time. Departure - Departure Time of Disposition: 08:27 Disposition: Home, Self-Care 01 Condition: Good Clinical Impression: Sleep paralysis - Discharge Information *PRESCRIPTION DRUG MONITORING PROGRAM REVIEWED*: Not Applicable *COPY OF PRESCRIPTION DRUG MONITORING REPORT IN PATIENT WILMA: Not Applicable Referrals: Neville Bañuelos MD [Physician] - Forms: ED Department Discharge Additional Instructions: You were seen in the emergency room after experiencing 2 episodes of just falling asleep and briefly feeling like you were paralyzed. An article in the journal Science, dated March 02, 2005 (Volume 309, issue 5741, pages [id number]) entitled "Breakdown of the cortical effective connectivity during sleep" describes a condition just like what you described, wherein the brain cuts off signals to your body so that you do not act out what you are dreaming. Ordinarily, it supposed to occur just after you fall asleep, however, in your case, it appears to have occurred just prior to your falling asleep. For further evaluation, we recommend that you follow-up with Mary Reynoso DNP, at [facility]. Call [phone] to make an appointment to be seen. If any other problems, please do not hesitate to return to the ER. Sepsis Event Note (ED) - Evaluation Sepsis Screening Result: No Definite Risk - Focused Exam Vital Signs: Vital Signs Temp Pulse Resp BP Pulse Ox 02/23/20 07:43 36.4 C 76 15 161/100 H 97
== END 2020-02-23 08:46 | disposition home or self-care (01) ==
LOC: JD.ED 07:28
DX: G47.53 Recurrent isolated sleep paralysis (principal); Z88.8 Allergy status to other drugs, medicaments and biological substances; Z90.49 Acquired absence of other specified parts of digestive tract
CPT/HCPCS: 99282; 99284

== ENCOUNTER 2020-08-28 16:28 | Emergency (ER) | payer OTHER ==
--- NOTE | 2020-08-28 17:31 | EDM.PDOCBH ---
ED HPI GENERAL MEDICAL PROBLEM - General Chief Complaint: Behavioral/Psych Stated Complaint: SUICIDAL IDEATIONS/DEPRESSION Time Seen by Provider: 08/28/20 16:33 Source of Information: Reports: Patient, Family History Limitations: Reports: Intoxication - History of Present Illness INITIAL COMMENTS - FREE TEXT/NARRATIVE: The patient presents with his for suicidal ideation and depression. The patient has a history of alcohol dependancy and was going to AA until a few months ago. He has relapsed and he has been drinking heavily. He has been drinking Vodka. His last drink was this morning. He has been depressed lately. Today he has thoughts of hurting himself. He does have a plan but he will not share that with me. He has never tried to hurt himself before. He has never had to be admitted for suicidal ideation. He sees Sakina Cuellar and she did some medications changes. His is on citalopram and vistaril. He denies any fever, chills, cough, chest pain, shortness of breath, abdominal pain, nausea or vomiting. Onset: Gradual Duration: Day(s): Severity: Moderate Improves with: Reports: None Worsens with: Reports: None Associated Symptoms: Reports: No Other Symptoms - Related Data Allergies Allergy/AdvReac Type Severity Reaction Status Date / Time meloxicam AdvReac Severe Ringing in Verified 08/28/20 16:40 the Ears Home Meds: Home Meds Escitalopram [Lexapro] 20 mg PO DAILY 08/28/20 [History] hydrOXYzine HCL [Atarax] 50 mg PO BEDTIME 08/28/20 [History] Past Medical History HEENT History: Reports: Impaired Vision Other HEENT History: WEARS GLASSES/ CONTACTS Cardiovascular History: Reports: None Respiratory History: Reports: None Gastrointestinal History: Reports: GERD Genitourinary History: Reports: None [employer] History: Reports: None Musculoskeletal History: Reports: None Neurological History: Reports: None Psychiatric History: Reports: Addiction, Anxiety, Depression Endocrine/Metabolic History: Reports: Obesity/BMI 30+ Hematologic History: Reports: None Immunologic History: Reports: None Oncologic (Cancer) History: Reports: None Dermatologic History: Reports: None - Infectious Disease History Infectious Disease History: Reports: Mononucleosis - Past Surgical History HEENT Surgical History: Reports: LASIK, Oral Surgery GI Surgical History: Reports: Cholecystectomy, Hernia Repair/Other Other GI Surgeries/Procedures: hernia repair as an infant Social & Family History - Family History Family Medical History: No Pertinent Family History Cardiac: Reports: High Cholesterol, Hypertension, PA Endocrine/Metabolic: Reports: Diabetes, type II Oncologic: Reports: Colon - Tobacco Use Tobacco Use Status *Q: Current Every Day Tobacco User Years of Tobacco use: 1 Packs/Tins Daily: 0.2 - Caffeine Use Caffeine Use: Reports: None - Recreational Drug Use Recreational Drug Use: No - Living Situation & Occupation Living situation: Reports: , with Spouse, with Family (1 child) Occupation: Employed ([employer]) ED ROS GENERAL - Review of Systems Review Of Systems: See Below Constitutional: Reports: No Symptoms HEENT: Reports: No Symptoms Respiratory: Reports: No Symptoms Cardiovascular: Reports: No Symptoms Endocrine: Reports: No Symptoms GI/Abdominal: Reports: No Symptoms : Reports: No Symptoms Musculoskeletal: Reports: No Symptoms ED EXAM, BEHAVIORAL HEALTH - Physical Exam Exam: See Below Exam Limited By: Intoxication General Appearance: Alert, No Apparent Distress Ears: Normal External Exam Nose: Normal Inspection Head: Atraumatic, Normocephalic Neck: Normal Inspection Respiratory/Chest: No Respiratory Distress, Lungs Clear, Normal Breath Sounds Cardiovascular: Regular Rate, Rhythm, No Edema, No Murmur GI/Abdominal: Soft, Non-Tender, No Organomegaly, No Mass Back Exam: Normal Inspection Extremities: Normal Inspection COURSE, BEHAVIORAL HEALTH COMP - Course Vital Signs: Last Vital Signs Temp 97.6 F 08/28/20 16:35 Pulse 111 H 08/28/20 16:35 Resp 16 08/28/20 16:35 BP 142/77 H 08/28/20 16:35 Pulse Ox 97 08/28/20 16:35 Orders, Labs, Meds: Active Orders 24 hr Category Date Time Status Cardiac Monitoring [RC] . DIRECTED Care 08/28/20 16:50 Active One To One Therapy [BH] Routine Oth 08/28/20 16:45 Ordered Laboratory Tests 08/28/20 08/28/20 08/28/20 Range/Units 16:50 17:05 17:07 WBC 6.59 (4.23-9.07) K/mm3 RBC 5.26 (4.63-6.08) M/mm3 Hgb 15.4 (13.7-17.5) gm/dl Hct 47.0 (40.1-51.0) % MCV 89.4 (79.0-92.2) fl MCH 29.3 (25.7-32.2) pg MCHC 32.8 (32.2-35.5) g/dl RDW Std Deviation 42.4 (35.1-43.9) fL Plt Count 280 (163-337) K/mm3 MPV 9.3 L (9.4-12.3) fl Neut % (Auto) 59.0 (34.0-67.9) % Lymph % (Auto) 28.2 (21.8-53.1) % Antelope % (Auto) 11.2 (5.3-12.2) % Eos % (Auto) 0.6 L (0.8-7.0) Baso % (Auto) 0.5 (0.1-1.2) % Neut # (Auto) 3.89 (1.78-5.38) K/mm3 Lymph # (Auto) 1.86 (1.32-3.57) K/mm3 Antelope # (Auto) 0.74 (0.30-0.82) K/mm3 Eos # (Auto) 0.04 (0.04-0.54) K/mm3 Baso # (Auto) 0.03 (0.01-0.08) K/mm3 Sodium (136-145) mEq/L Potassium (3.5-5.1) mEq/L Chloride (98-107) mEq/L Carbon Dioxide (21-32) mEq/L Anion Gap (5-15) BUN (7-18) mg/dL Creatinine (0.7-1.3) mg/dL Est Cr Clr Drug Dosing mL/min Estimated GFR (MDRD) (>60) mL/min BUN/Creatinine Ratio (14-18) Glucose (74-106) mg/dL Calcium (8.5-10.1) mg/dL Total Bilirubin (0.2-1.0) mg/dL AST (15-37) U/L ALT (16-63) U/L Alkaline Phosphatase (46-116) U/L Total Protein (6.4-8.2) g/dl Albumin (3.4-5.0) g/dl Globulin gm/dL Albumin/Globulin Ratio (1-2) TSH 3rd Generation (0.358-3.74) uIU/mL Salicylates (2.8-20) mg/dL Urine Opiates Screen Negative (MKHTZQ=418) Ur Buprenorphine Scrn Negative (CUTOFF=10) Ur Oxycodone Screen Negative (YLO5RS=174) Urine Methadone Screen Negative (VNB6NG=233) Ur Propoxyphene Screen Negative (ZXAOFA=656) Acetaminophen (10-30) ug/mL Ur Barbiturates Screen Negative (IOIXUC=788) Ur Tricyclics Screen Negative (OXWNME=541) Ur Phencyclidine Scrn Negative (CUTOFF=25) Ur Amphetamine Screen Negative (DQMCPR=383) U Methamphetamines Scrn Negative (XGFPJF=087) U Benzodiazepines Scrn Negative (CBPBAB=095) U Cocaine Metab Screen Negative (TXAVNW=767) U Marijuana (THC) Screen Negative (CUTOFF=50) Ethyl Alcohol (0.00) gm% SARS-CoV-2 RNA (MACEY) Negative (NEGATIVE) 08/28/20 08/28/20 Range/Units 17:07 17:07 WBC (4.23-9.07) K/mm3 RBC (4.63-6.08) M/mm3 Hgb (13.7-17.5) gm/dl Hct (40.1-51.0) % MCV (79.0-92.2) fl MCH (25.7-32.2) pg MCHC (32.2-35.5) g/dl RDW Std Deviation (35.1-43.9) fL Plt Count (163-337) K/mm3 MPV (9.4-12.3) fl Neut % (Auto) (34.0-67.9) % Lymph % (Auto) (21.8-53.1) % Antelope % (Auto) (5.3-12.2) % Eos % (Auto) (0.8-7.0) Baso % (Auto) (0.1-1.2) % Neut # (Auto) (1.78-5.38) K/mm3 Lymph # (Auto) (1.32-3.57) K/mm3 Antelope # (Auto) (0.30-0.82) K/mm3 Eos # (Auto) (0.04-0.54) K/mm3 Baso # (Auto) (0.01-0.08) K/mm3 Sodium 147 H (136-145) mEq/L Potassium 3.6 (3.5-5.1) mEq/L Chloride 106 (98-107) mEq/L Carbon Dioxide 26 (21-32) mEq/L Anion Gap 18.6 H (5-15) BUN 10 (7-18) mg/dL Creatinine 0.9 (0.7-1.3) mg/dL Est Cr Clr Drug Dosing 116.74 mL/min Estimated GFR (MDRD) > 60 (>60) mL/min BUN/Creatinine Ratio 11.1 L (14-18) Glucose 85 (74-106) mg/dL Calcium 8.9 (8.5-10.1) mg/dL Total Bilirubin 0.3 (0.2-1.0) mg/dL AST 29 (15-37) U/L ALT 69 H (16-63) U/L Alkaline Phosphatase 45 L (46-116) U/L Total Protein 7.5 (6.4-8.2) g/dl Albumin 4.0 (3.4-5.0) g/dl Globulin 3.5 gm/dL Albumin/Globulin Ratio 1.1 (1-2) TSH 3rd Generation 0.550 (0.358-3.74) uIU/mL Salicylates 2.0 L (2.8-20) mg/dL Urine Opiates Screen (IOPVKA=480) Ur Buprenorphine Scrn (CUTOFF=10) Ur Oxycodone Screen (GJW7RS=680) Urine Methadone Screen (HOD8KO=406) Ur Propoxyphene Screen (EUQIFV=358) Acetaminophen 0 L (10-30) ug/mL Ur Barbiturates Screen (KAPXSU=654) Ur Tricyclics Screen (MRJPXN=444) Ur Phencyclidine Scrn (CUTOFF=25) Ur Amphetamine Screen (ODDXIW=924) U Methamphetamines Scrn (AQJFSH=518) U Benzodiazepines Scrn (VXNZUA=915) U Cocaine Metab Screen (ZBELBZ=782) U Marijuana (THC) Screen (CUTOFF=50) Ethyl Alcohol 0.26 (0.00) gm% SARS-CoV-2 RNA (MACEY) (NEGATIVE) Re-Assessment/Re-Exam: I ordered labs and a urine drug screen. His CBC looks good. His Na is elevated at 147. His anion gap is elevated at 18.6. His ALT is elevated at 16.9. His TSH is normal. His UDS is negative. His blood alcohol is 0.26. His salicylates and acetaminophen are normal. He is feeling better now and says he is not suicidal. He and his are getti ng . She is willing to stay with him tonight and she is taking him to an AA meeting [facility]. Departure - Departure Time of Disposition: 18:50 Disposition: Home, Self-Care 01 Condition: Fair Clinical Impression: Depressive disorder, Suicidal ideation Alcohol intoxication Qualifiers: Complication of substance-induced condition: uncomplicated Qualified Code(s): F10.920 - Alcohol use, unspecified with intoxication, uncomplicated - Discharge Information *PRESCRIPTION DRUG MONITORING PROGRAM REVIEWED*: Not Applicable *COPY OF PRESCRIPTION DRUG MONITORING REPORT IN PATIENT WILMA: Not Applicable Referrals: Autumn Medina PA-C [Primary Care Provider] - 1 Day Forms: ED Department Discharge Additional Instructions: Call Sakina Medina in the morning about your medications. Go to [facility] and get some rest. Please return if you are worse. Sepsis Event Note (ED) - Evaluation Sepsis Screening Result: No Definite Risk - Focused Exam Vital Signs: Vital Signs Temp Pulse Resp BP Pulse Ox 08/28/20 16:35 97.6 F 111 H 16 142/77 H 97 - My Orders Last 24 Hours: My Active Orders 08/28/20 16:45 One To One Therapy [BH] Routine 08/28/20 16:50 Cardiac Monitoring [RC] . DIRECTED - Assessment/Plan Last 24 Hours: My Active Orders 08/28/20 16:45 One To One Therapy [BH] Routine 08/28/20 16:50 Cardiac Monitoring [RC] . DIRECTED
[2020-08-28 17:48] LABS: ACETAMINOPHEN 0 ug/mL (10-30)
== END 2020-08-28 18:56 | disposition home or self-care (01) ==
LOC: JD.ED 16:28
DX: F32.9 Major depressive disorder, single episode, unspecified (principal); F10.120 Alcohol abuse with intoxication, uncomplicated; R74.01 Elevation of levels of liver transaminase levels; E66.9 Obesity, unspecified; Z68.32 Body mass index [BMI] 32.0-32.9, adult; Z88.6 Allergy status to analgesic agent; Z72.0 Tobacco use; Y90.0 Blood alcohol level of less than 20 mg/100 ml; Z20.822 Contact with and (suspected) exposure to COVID-19
CPT/HCPCS: 36415; 80053; 80143; 80179; 80306; 80307; 84443; 85025; 99284; U0002

== ENCOUNTER 2021-12-24 22:00 | Emergency (ER) | payer OTHER | END 2021-12-25 00:26 | disposition left against medical advice (07) | LOC: JD.ED 22:00 | DX: Z53.21 Procedure and treatment not carried out due to patient leaving prior to being seen by health care provider (principal) ==

== ENCOUNTER 2023-06-24 11:44 | Emergency (ER) | payer OTHER ==
[2023-06-24 13:54] LABS: CORONAVIRUS COVID-19 NAA NEGATIVE (NEGATIVE); INFLUENZA A NAA NEGATIVE (NEGATIVE); RESPIRATORY SYNCYTIAL VIR NAA NEGATIVE (NEGATIVE)
== END 2023-06-24 14:23 | disposition home or self-care (01) ==
LOC: JD.ED 11:44
DX: J06.9 Acute upper respiratory infection, unspecified (principal); R03.0 Elevated blood-pressure reading, without diagnosis of hypertension; Z88.6 Allergy status to analgesic agent
CPT/HCPCS: 0241U; 71046; 99283; 99284

== ENCOUNTER 2023-09-09 09:44 | Emergency (ER) | payer BC, OTHER ==
[2023-09-09 11:22] LABS: BASOPHILS ABSOLUTE AUTO 0.1 K/mm3 (0.0-0.2); BASOPHILS PERCENT AUTO 1.8 % (0.0-1.0); EOSINOPHILS PERCENT AUTO 0.6 % (0.0-6.0); HEMATOCRIT 42.6 % (42.0-52.0); HEMOGLOBIN 14.6 gm/dl (14.0-18.0); IMMATURE GRAN ABSOLUTE AUTO 0.01 K/mm3 (0.00-0.05); IMMATURE GRAN PERCENT AUTO 0.3 % (0.0-0.4); LYMPHOCYTES ABSOLUTE AUTO 0.8 K/mm3 (1.0-4.8); LYMPHOCYTES PERCENT AUTO 25.2 % (24.0-44.0); MEAN CORPUSCULAR HEMOGLOBIN 32.5 pg (28.0-32.0); MEAN CORPUSCULAR HGB CONC 34.3 g/dl (32.0-36.0); MEAN CORPUSCULAR VOLUME 94.9 fl (83.0-99.0); MEAN PLATELET VOLUME 8.9 fl (9.4-12.4); MONOCYTES ABSOLUTE AUTO 0.4 K/mm3 (0.0-0.8); MONOCYTES PERCENT AUTO 12.3 % (0.0-8.0); NEUTROPHILS PERCENT AUTO 59.8 % (41.0-71.0); PLATELET COUNT,PLT 104 K/mm3 (150-400); RED BLOOD CELL COUNT 4.49 M/mm3 (4.52-5.90); WHITE BLOOD CELL COUNT,WBC 3.26 K/mm3 (3.9-11.3)
[2023-09-09] MEDS: Thiamine 100 MG Tab PO ONE (11:23)
[2023-09-09] MEDS: Folic Acid 1 MG Tab PO ONE (11:23)
[2023-09-09 11:51] LABS: A/G RATIO 1.2 (1-2); ANION GAP 17.7 (5-15); BILIRUBIN TOTAL 0.8 mg/dL (0.2-1.0); BUN/CREATININE RATIO 8.6 (14-18); CALCIUM 8.8 mg/dL (8.5-10.1); CREATININE 0.7 mg/dL (0.7-1.3); EST CRCL DRUG DOSING (CG) 145.89 mL/min; ETHANOL BLOOD MEDICAL 0.36 gm% (0.00); POTASSIUM,K 3.7 mEq/L (3.5-5.1); PROTEIN TOTAL,TP 7.4 g/dl (6.4-8.2); TSH 0.339 uIU/mL (0.358-3.74)
[2023-09-09 11:54] LABS: BARBITURATE SCREEN,URINE NEGATIVE (CUTOFF=200); BENZODIAZEPINES SCREEN,URINE NEGATIVE (CUTOFF=150); BUPRENORPHINE SCREEN,URINE NEGATIVE (CUTOFF=10); METHADONE SCREEN, URINE NEGATIVE (CUT0FF=200); METHAMPHETAMINES SCREEN, URINE NEGATIVE (CUTOFF=500); OXYCODONE SCREEN,URINE NEGATIVE (CUT0FF=100); THC SCREEN,URINE 20 NG/ML NEGATIVE (CUTOFF=50)
[2023-09-09 12:02] LABS: AMPHETAMINES SCREEN, URINE NEGATIVE (CUTOFF=500)
== END 2023-09-09 12:32 | disposition other institution (70) ==
LOC: JD.ED 09:44
DX: F10.920 Alcohol use, unspecified with intoxication, uncomplicated (principal); R94.6 Abnormal results of thyroid function studies; R74.01 Elevation of levels of liver transaminase levels; E66.9 Obesity, unspecified; F17.210 Nicotine dependence, cigarettes, uncomplicated; Z88.8 Allergy status to other drugs, medicaments and biological substances; Z79.899 Other long term (current) drug therapy; Z68.29 Body mass index [BMI] 29.0-29.9, adult; Y90.9 Presence of alcohol in blood, level not specified
CPT/HCPCS: 36415; 80053; 80143; 80179; 80306; 80307; 84443; 85025; 99284; A9270

== ENCOUNTER 2023-09-10 08:02 | Emergency (ER) | payer BC ==
[2023-09-10] MEDS: LORazepam 2 MG/ML SDV IVPUSH ONE (08:46)
[2023-09-10] MEDS: Sodium Chloride 0.9% 1,000 ML IV ONE (08:48)
[2023-09-10 08:53] LABS: BASOPHILS PERCENT AUTO 1.3 % (0.0-1.0); HEMATOCRIT 41.3 % (42.0-52.0); HEMOGLOBIN 14.1 gm/dl (14.0-18.0); IMMATURE GRAN ABSOLUTE AUTO 0.01 K/mm3 (0.00-0.05); IMMATURE GRAN PERCENT AUTO 0.4 % (0.0-0.4); LYMPHOCYTES ABSOLUTE AUTO 0.3 K/mm3 (1.0-4.8); LYMPHOCYTES PERCENT AUTO 12.1 % (24.0-44.0); MEAN CORPUSCULAR HEMOGLOBIN 32.1 pg (28.0-32.0); MEAN CORPUSCULAR HGB CONC 34.1 g/dl (32.0-36.0); MEAN CORPUSCULAR VOLUME 94.1 fl (83.0-99.0); MEAN PLATELET VOLUME 9.7 fl (9.4-12.4); MONOCYTES ABSOLUTE AUTO 0.3 K/mm3 (0.0-0.8); MONOCYTES PERCENT AUTO 12.5 % (0.0-8.0); NEUTROPHILS ABSOLUTE AUTO 1.8 K/mm3 (1.8-7.7); NEUTROPHILS PERCENT AUTO 73.7 % (41.0-71.0); PLATELET COUNT,PLT 80 K/mm3 (150-400); RED BLOOD CELL COUNT 4.39 M/mm3 (4.52-5.90)
[2023-09-10 09:22] LABS: A/G RATIO 1.2 (1-2); ALBUMIN 4.1 g/dl (3.4-5.0); ANION GAP 19.1 (5-15); BILIRUBIN TOTAL 2.1 mg/dL (0.2-1.0); CALCIUM 9.8 mg/dL (8.5-10.1); CREATININE 0.8 mg/dL (0.7-1.3); EST CRCL DRUG DOSING (CG) 127.65 mL/min; MAGNESIUM 1.3 mg/dL (1.8-2.4); POTASSIUM,K 3.1 mEq/L (3.5-5.1); PROTEIN TOTAL,TP 7.4 g/dl (6.4-8.2); TSH 0.785 uIU/mL (0.358-3.74)
[2023-09-10 09:24] LABS: SLIDE REVIEW ABNORMAL SMEAR
[2023-09-10 09:40] LABS: APPEARANCE,URINE CLEAR (Clear); BILIRUBIN,URINE 1+ (Negative); COLOR,URINE DARK YELLOW (Yellow); GLUCOSE,URINE TRACE (Negative); KETONES,URINE 4+ (Negative); LEUKOCYTE ESTERASE,URINE NEGATIVE (Negative); NITRITE,URINE NEGATIVE (Negative); OCCULT BLOOD,URINE NEGATIVE (Negative); PH,URINE 7.5 (5.0-8.0); PROTEIN,URINE 2+ (Negative)
[2023-09-10 09:58] LABS: BACTERIA,URINE FEW /hpf (FEW); MUCUS,URINE FEW /hpf (FEW); RBC,URINE 0-5 /hpf (0-5); WBC,URINE 0-5 /hpf (0-5)
[2023-09-10 10:20] LABS: BARBITURATE SCREEN,URINE NEGATIVE (CUTOFF=200); BENZODIAZEPINES SCREEN,URINE PRESUMPTIVE POSITIVE (CUTOFF=150); BUPRENORPHINE SCREEN,URINE NEGATIVE (CUTOFF=10); METHADONE SCREEN, URINE NEGATIVE (CUT0FF=200); METHAMPHETAMINES SCREEN, URINE NEGATIVE (CUTOFF=500); OXYCODONE SCREEN,URINE NEGATIVE (CUT0FF=100); THC SCREEN,URINE 20 NG/ML NEGATIVE (CUTOFF=50)
[2023-09-10 10:30] LABS: AMPHETAMINES SCREEN, URINE NEGATIVE (CUTOFF=500)
[2023-09-10] MEDS: Potassium Chloride 20 MEQ Tab.ER PO ONE (10:35)
[2023-09-10] MEDS: LORazepam 2 MG/ML SDV IM ONE (10:42)
== END 2023-09-10 10:47 | disposition home or self-care (01) ==
LOC: JD.ED 08:02
DX: E87.6 Hypokalemia (principal); Z90.49 Acquired absence of other specified parts of digestive tract; Z79.899 Other long term (current) drug therapy; Z88.8 Allergy status to other drugs, medicaments and biological substances
CPT/HCPCS: 36415; 70450; 71045; 80053; 80306; 81001; 83735; 84443; 85025; 93005; 96361; 96372; 96374; 99285; A9270; J2060; J7030; 93010; 99284

== ENCOUNTER 2023-09-12 11:38 | Emergency (ER) | payer BC ==
[2023-09-12 12:56] LABS: BASOPHILS ABSOLUTE AUTO 0.1 K/mm3 (0.0-0.2); BASOPHILS PERCENT AUTO 1.6 % (0.0-1.0); EOSINOPHILS ABSOLUTE AUTO 0.1 K/mm3 (0.0-0.4); EOSINOPHILS PERCENT AUTO 1.6 % (0.0-6.0); HEMATOCRIT 39.9 % (42.0-52.0); HEMOGLOBIN 13.7 gm/dl (14.0-18.0); IMMATURE GRAN ABSOLUTE AUTO 0.02 K/mm3 (0.00-0.05); IMMATURE GRAN PERCENT AUTO 0.5 % (0.0-0.4); LYMPHOCYTES ABSOLUTE AUTO 0.5 K/mm3 (1.0-4.8); LYMPHOCYTES PERCENT AUTO 13.4 % (24.0-44.0); MEAN CORPUSCULAR HEMOGLOBIN 32.8 pg (28.0-32.0); MEAN CORPUSCULAR HGB CONC 34.3 g/dl (32.0-36.0); MEAN CORPUSCULAR VOLUME 95.5 fl (83.0-99.0); MEAN PLATELET VOLUME 10.1 fl (9.4-12.4); MONOCYTES ABSOLUTE AUTO 0.5 K/mm3 (0.0-0.8); MONOCYTES PERCENT AUTO 13.4 % (0.0-8.0); NEUTROPHILS ABSOLUTE AUTO 2.7 K/mm3 (1.8-7.7); NEUTROPHILS PERCENT AUTO 69.5 % (41.0-71.0); PLATELET COUNT,PLT 105 K/mm3 (150-400); RED BLOOD CELL COUNT 4.18 M/mm3 (4.52-5.90); WHITE BLOOD CELL COUNT,WBC 3.81 K/mm3 (3.9-11.3)
[2023-09-12] MEDS: Sodium Chloride 0.9% 1,000 ML IV ONE (13:05)
[2023-09-12] MEDS: Sodium Chloride 0.9% 10 ML Syringe FLUSH PRN (13:05)
[2023-09-12 13:18] LABS: A/G RATIO 1.3 (1-2); ANION GAP 16.5 (5-15); BUN/CREATININE RATIO 8.8 (14-18); CALCIUM 9.4 mg/dL (8.5-10.1); CREATININE 0.8 mg/dL (0.7-1.3); EST CRCL DRUG DOSING (CG) 127.65 mL/min; POTASSIUM,K 3.5 mEq/L (3.5-5.1); PROTEIN TOTAL,TP 7.1 g/dl (6.4-8.2)
== END 2023-09-12 14:55 | disposition home or self-care (01) ==
LOC: JD.ED 11:38
DX: F10.930 Alcohol use, unspecified with withdrawal, uncomplicated (principal); F17.210 Nicotine dependence, cigarettes, uncomplicated; Z79.899 Other long term (current) drug therapy; Z90.49 Acquired absence of other specified parts of digestive tract
CPT/HCPCS: 36415; 80053; 82140; 85025; 96360; 99284; J3490; J7030; 99283

== ENCOUNTER 2023-09-17 20:40 | Emergency (ER) | payer BC, OTHER ==
[2023-09-17 21:02] LABS: BASOPHILS ABSOLUTE AUTO 0.1 K/mm3 (0.0-0.2); BASOPHILS PERCENT AUTO 1.8 % (0.0-1.0); EOSINOPHILS PERCENT AUTO 0.7 % (0.0-6.0); HEMATOCRIT 40.1 % (42.0-52.0); HEMOGLOBIN 13.5 gm/dl (14.0-18.0); IMMATURE GRAN ABSOLUTE AUTO 0.03 K/mm3 (0.00-0.05); IMMATURE GRAN PERCENT AUTO 0.7 % (0.0-0.4); MEAN CORPUSCULAR HEMOGLOBIN 32.3 pg (28.0-32.0); MEAN CORPUSCULAR HGB CONC 33.7 g/dl (32.0-36.0); MEAN CORPUSCULAR VOLUME 95.9 fl (83.0-99.0); MEAN PLATELET VOLUME 9.1 fl (9.4-12.4); NEUTROPHILS ABSOLUTE AUTO 2.3 K/mm3 (1.8-7.7); NEUTROPHILS PERCENT AUTO 50.8 % (41.0-71.0); PLATELET COUNT,PLT 205 K/mm3 (150-400); RED BLOOD CELL COUNT 4.18 M/mm3 (4.52-5.90); WHITE BLOOD CELL COUNT,WBC 4.53 K/mm3 (3.9-11.3)
[2023-09-17] MEDS: Sodium Chloride 0.9% 1,000 ML IV SCH (21:04)
[2023-09-17 21:29] LABS: A/G RATIO 1.2 (1-2); ALBUMIN 3.9 g/dl (3.4-5.0); ANION GAP 19.3 (5-15); BILIRUBIN TOTAL 0.6 mg/dL (0.2-1.0); BUN/CREATININE RATIO 14.2 (14-18); CALCIUM 9.8 mg/dL (8.5-10.1); CREATININE 1.2 mg/dL (0.7-1.3); EST CRCL DRUG DOSING (CG) 85.1 mL/min; POTASSIUM,K 3.3 mEq/L (3.5-5.1); PROTEIN TOTAL,TP 7.1 g/dl (6.4-8.2)
[2023-09-17] MEDS: Potassium Chloride 20 MEQ Tab.ER PO ONE (21:41)
[2023-09-17] MEDS: Potassium Chloride 10 MEQ in Premix Bag 1 BAG IV ONE (21:41)
== END 2023-09-17 22:05 | disposition home or self-care (01) ==
LOC: JD.ED 20:40
DX: R56.9 Unspecified convulsions (principal); E87.6 Hypokalemia; I10 Essential (primary) hypertension; F17.210 Nicotine dependence, cigarettes, uncomplicated; Z88.8 Allergy status to other drugs, medicaments and biological substances; Z79.899 Other long term (current) drug therapy; Z86.16 Personal history of COVID-19; Z68.31 Body mass index [BMI] 31.0-31.9, adult
CPT/HCPCS: 36415; 70450; 80053; 80307; 82947; 83690; 84484; 85025; 96360; 99285; J7030; 99284

== ENCOUNTER 2023-12-30 03:28 | Inpatient (IN) | payer BC, MEDICAID ==
[2023-12-30 04:12] LABS: BASOPHILS ABSOLUTE AUTO 0.1 K/mm3 (0.0-0.2); BASOPHILS PERCENT AUTO 0.5 % (0.0-1.0); HEMATOCRIT 51.2 % (42.0-52.0); HEMOGLOBIN 18.2 gm/dl (14.0-18.0); IMMATURE GRAN ABSOLUTE AUTO 0.14 K/mm3 (0.00-0.05); IMMATURE GRAN PERCENT AUTO 1.2 % (0.0-0.4); LYMPHOCYTES ABSOLUTE AUTO 1.4 K/mm3 (1.0-4.8); LYMPHOCYTES PERCENT AUTO 11.7 % (24.0-44.0); MEAN CORPUSCULAR HEMOGLOBIN 31.8 pg (28.0-32.0); MEAN CORPUSCULAR HGB CONC 35.5 g/dl (32.0-36.0); MEAN CORPUSCULAR VOLUME 89.5 fl (83.0-99.0); MEAN PLATELET VOLUME 10.9 fl (9.4-12.4); MONOCYTES ABSOLUTE AUTO 1.3 K/mm3 (0.0-0.8); MONOCYTES PERCENT AUTO 10.8 % (0.0-8.0); NEUTROPHILS ABSOLUTE AUTO 8.7 K/mm3 (1.8-7.7); NEUTROPHILS PERCENT AUTO 75.8 % (41.0-71.0); PLATELET COUNT,PLT 106 K/mm3 (150-400); RED BLOOD CELL COUNT 5.72 M/mm3 (4.52-5.90); WHITE BLOOD CELL COUNT,WBC 11.53 K/mm3 (3.9-11.3)
[2023-12-30] MEDS: Ondansetron 4 MG/2 ML SDV IVPUSH ONE (04:28)
[2023-12-30] MEDS: Sodium Chloride 0.9% 1,000 ML IV ONE ×2 (04:28→05:07)
[2023-12-30] MEDS: Ondansetron 4 MG/2 ML SDV ONE (04:29)
[2023-12-30] MEDS: Sodium Chloride 0.9% 10 ML Syringe FLUSH PRN ×2 (04:35→10:19)
[2023-12-30 04:36] LABS: ALBUMIN 3.5 g/dl (3.4-5.0); ANION GAP 25.3 (5-15); BILIRUBIN TOTAL 6.1 mg/dL (0.2-1.0); CALCIUM 6.9 mg/dL (8.5-10.1); EST CRCL DRUG DOSING (CG) 57.6 mL/min; MAGNESIUM 1.3 mg/dL (1.8-2.4)
[2023-12-30 04:42] LABS: POTASSIUM,K 3.3 mEq/L (3.5-5.1); PROTEIN TOTAL,TP 7.1 g/dl (6.4-8.2)
[2023-12-30 04:43] LABS: CREATININE 1.6 mg/dL (0.7-1.3)
[2023-12-30] MEDS: Potassium Chloride 20 MEQ Tab.ER PO ONE ×3 (05:07→13:50)
[2023-12-30] MEDS: Potassium Chloride 10 MEQ in Premix Bag 1 BAG IV ONE (05:07)
[2023-12-30 05:22] LABS: CORONAVIRUS COVID-19 NAA NEGATIVE (NEGATIVE); INFLUENZA A NAA NEGATIVE (NEGATIVE); RESPIRATORY SYNCYTIAL VIR NAA NEGATIVE (NEGATIVE)
[2023-12-30] MEDS: Magnesium Sulfate/Water 2 GM in Premix Bag 1 BAG IV ONE ×2 (06:09→08:56)
[2023-12-30] MEDS ORDERED: Magnesium Sulfate (4.06 MEQ/ML) 5 GM/10 ML SDV IV ONE (08:00)
[2023-12-30 08:51] LABS: BASOPHILS PERCENT AUTO 0.4 % (0.0-1.0); EOSINOPHILS PERCENT AUTO 0.1 % (0.0-6.0); HEMATOCRIT 44.5 % (42.0-52.0); HEMOGLOBIN 15.9 gm/dl (14.0-18.0); IMMATURE GRAN ABSOLUTE AUTO 0.09 K/mm3 (0.00-0.05); IMMATURE GRAN PERCENT AUTO 1.1 % (0.0-0.4); LYMPHOCYTES ABSOLUTE AUTO 0.3 K/mm3 (1.0-4.8); MEAN CORPUSCULAR HEMOGLOBIN 31.7 pg (28.0-32.0); MEAN CORPUSCULAR HGB CONC 35.7 g/dl (32.0-36.0); MEAN CORPUSCULAR VOLUME 88.8 fl (83.0-99.0); MEAN PLATELET VOLUME 10.1 fl (9.4-12.4); MONOCYTES PERCENT AUTO 12.3 % (0.0-8.0); NEUTROPHILS ABSOLUTE AUTO 6.9 K/mm3 (1.8-7.7); NEUTROPHILS PERCENT AUTO 82.1 % (41.0-71.0); PLATELET COUNT,PLT 70 K/mm3 (150-400); RED BLOOD CELL COUNT 5.01 M/mm3 (4.52-5.90); WHITE BLOOD CELL COUNT,WBC 8.45 K/mm3 (3.9-11.3)
[2023-12-30] MEDS: Sodium Chloride 0.9% 1,000 ML IV SCH ×2 (08:57→22:42)
[2023-12-30] MEDS: Famotidine 20 MG/2 ML SDV IVPUSH ONE (08:57)
[2023-12-30 09:08] LABS: INR 1.31; PROTHROMBIN TIME 13.6 SECONDS (9.7-12.0)
[2023-12-30 09:14] LABS: A/G RATIO 1.2 (1-2); ANION GAP 20.5 (5-15); BILIRUBIN TOTAL 5.6 mg/dL (0.2-1.0); EST CRCL DRUG DOSING (CG) 92.16 mL/min; POTASSIUM,K 3.5 mEq/L (3.5-5.1); PROTEIN TOTAL,TP 5.6 g/dl (6.4-8.2)
[2023-12-30 09:40] LABS: CALCIUM 5.8 mg/dL (8.5-10.1)
[2023-12-30] MEDS ORDERED: Morphine 2 MG/ML SYRINGE IVPUSH PRN (09:52)
[2023-12-30] MEDS ORDERED: LORazepam 2 MG/ML SDV IVPUSH PRN ×2 (09:56→13:20)
[2023-12-30] MEDS ORDERED: Calcium Gluconate 10% 1 GM/10 ML SDV IV ONE (10:00)
[2023-12-30] MEDS: Iopamidol 612 MG/ML 100 ML Bottle IVPUSH ONE (10:19)
[2023-12-30] MEDS: Calcium Chloride 10% 1 GM/10 ML Syringe IVPUSH ONE (10:25)
[2023-12-30 10:39] LABS: ETHANOL BLOOD MEDICAL 0.21 gm% (0.00)
[2023-12-30] MEDS: Enoxaparin 40 MG/0.4 ML Syringe SUBCUT SCH (12:39)
[2023-12-30] MEDS: chlordiazePOXIDE 25 MG Cap PO SCH (12:39)
[2023-12-30 12:55] LABS: APPEARANCE,URINE SLT CLOUDY (Clear); BILIRUBIN,URINE 3+ (Negative); COLOR,URINE AMBER (Yellow); GLUCOSE,URINE TRACE (Negative); KETONES,URINE 1+ (Negative); LEUKOCYTE ESTERASE,URINE NEGATIVE (Negative); NITRITE,URINE POSITIVE (Negative); OCCULT BLOOD,URINE 2+ (Negative); PROTEIN,URINE 3+ (Negative); UROBILINOGEN,URINE >=8.0 (0.2-1.0)
[2023-12-30 13:07] LABS: BARBITURATE SCREEN,URINE NEGATIVE (CUTOFF=200); BENZODIAZEPINES SCREEN,URINE NEGATIVE (CUTOFF=150); BUPRENORPHINE SCREEN,URINE NEGATIVE (CUTOFF=10); METHADONE SCREEN, URINE NEGATIVE (CUT0FF=200); METHAMPHETAMINES SCREEN, URINE NEGATIVE (CUTOFF=500); OXYCODONE SCREEN,URINE NEGATIVE (CUT0FF=100); THC SCREEN,URINE 20 NG/ML NEGATIVE (CUTOFF=50)
[2023-12-30 13:09] LABS: AMPHETAMINES SCREEN, URINE NEGATIVE (CUTOFF=500)
[2023-12-30] MEDS: Calcium Carbonate 600 MG Tab PO ONE (13:14)
[2023-12-30 13:17] LABS: RBC,URINE 50-75 /hpf (0-5); SQUAMOUS EPITHELIAL CELLS,UR 0-5 /hpf (0-5); WBC,URINE 40-50 /hpf (0-5)
[2023-12-30 13:18] LABS: BACTERIA,URINE MANY /hpf (FEW); HYALINE CASTS,URINE 20-30 /lpf (0-5); MUCUS,URINE MODERATE /hpf (FEW)
[2023-12-30 13:39] LABS: SLIDE REVIEW ABNORMAL SMEAR
[2023-12-30] MEDS: LORazepam 2 MG/ML SDV IVPUSH PRN (13:48)
[2023-12-30] MEDS: Metoprolol Tartrate 5 MG/5 ML SDV IVPUSH PRN (15:29)
[2023-12-30] MEDS: Lactated Ringers 1,000 ML IV SCH (17:14)
[2023-12-30] MEDS ORDERED: 50% Dextrose in Water 50 ML Syringe IVPUSH PRN (21:42)
[2023-12-30] MEDS: cefTRIAXone 1 GM in Sodium Chloride 0.9% 100 ML IV SCH (22:43)
[2023-12-31] MEDS: Ondansetron 4 MG/2 ML SDV IVPUSH PRN (04:14)
[2023-12-31 04:50] LABS: BASOPHILS PERCENT AUTO 0.4 % (0.0-1.0); HEMATOCRIT 38.2 % (42.0-52.0); HEMOGLOBIN 13.3 gm/dl (14.0-18.0); IMMATURE GRAN ABSOLUTE AUTO 0.04 K/mm3 (0.00-0.05); IMMATURE GRAN PERCENT AUTO 0.9 % (0.0-0.4); LYMPHOCYTES ABSOLUTE AUTO 0.4 K/mm3 (1.0-4.8); LYMPHOCYTES PERCENT AUTO 8.3 % (24.0-44.0); MEAN CORPUSCULAR HEMOGLOBIN 31.3 pg (28.0-32.0); MEAN CORPUSCULAR HGB CONC 34.8 g/dl (32.0-36.0); MEAN CORPUSCULAR VOLUME 89.9 fl (83.0-99.0); MEAN PLATELET VOLUME 12.1 fl (9.4-12.4); MONOCYTES ABSOLUTE AUTO 0.6 K/mm3 (0.0-0.8); MONOCYTES PERCENT AUTO 13.7 % (0.0-8.0); NEUTROPHILS ABSOLUTE AUTO 3.4 K/mm3 (1.8-7.7); NEUTROPHILS PERCENT AUTO 76.7 % (41.0-71.0); NRBC ABSOLUTE 0.02 (0.00-0.02); NRBC PERCENT 0.4 % (0.0-0.2); PLATELET COUNT,PLT 59 K/mm3 (150-400); RED BLOOD CELL COUNT 4.25 M/mm3 (4.52-5.90); WHITE BLOOD CELL COUNT,WBC 4.46 K/mm3 (3.9-11.3)
[2023-12-31 05:24] LABS: INR 1.3; PROTHROMBIN TIME 13.5 SECONDS (9.7-12.0)
[2023-12-31 05:41] LABS: A/G RATIO 0.9 (1-2); ALBUMIN 2.5 g/dl (3.4-5.0); ANION GAP 17.1 (5-15); BILIRUBIN TOTAL 5.9 mg/dL (0.2-1.0); EST CRCL DRUG DOSING (CG) 102.12 mL/min; MAGNESIUM 1.8 mg/dL (1.8-2.4); PHOSPHORUS 1.7 mg/dL (2.6-4.7); POTASSIUM,K 4.1 mEq/L (3.5-5.1); PROTEIN TOTAL,TP 5.2 g/dl (6.4-8.2)
[2023-12-31 05:49] LABS: CALCIUM 5.5 mg/dL (8.5-10.1)
[2023-12-31 06:32] LABS: SLIDE REVIEW ABNORMAL SMEAR
[2023-12-31 06:38] LABS: BASE EXCESS VENOUS -3.3 (-4.0-2.0); BICARBONATE,VENOUS 20.1 meq/L (22-26); O2 SATURATION VENOUS 81.7; PCO2 VENOUS 32.9 mmHg (41-51)
[2023-12-31] MEDS ORDERED: Calcium Gluconate 10% 1 GM/10 ML SDV IV ONE (07:50)
[2023-12-31] MEDS: Cyanocobalamin (Vitamin B12) 1,000 MCG Tab PO SCH (08:33)
[2023-12-31] MEDS: chlordiazePOXIDE 25 MG Cap PO SCH (08:33)
[2023-12-31] MEDS: Folic Acid 1 MG Tab PO SCH (08:33)
[2023-12-31] MEDS: Pantoprazole 40 MG Vial IVPUSH SCH (08:34)
[2023-12-31] MEDS: Magnesium Sulfate/Water 4 GM in Premix Bag 1 BAG IV ONE (08:37)
[2023-12-31] MEDS: Nicotine 14 MG/24 Hr Patch TRDERM SCH (08:51)
[2023-12-31] MEDS: Insulin Lispro 100 Unit/ML 3 ML KwikPen SUBCUT SCH (09:50)
[2023-12-31] MEDS: Sodium Phosphate 30 MMOLE in Sodium Chloride 0.9% 250 ML IV ONE (10:25)
[2023-12-31 15:17] LABS: ANION GAP 18.8 (5-15); CALCIUM 6.1 mg/dL (8.5-10.1); EST CRCL DRUG DOSING (CG) 102.12 mL/min; PHOSPHORUS 3.3 mg/dL (2.6-4.7)
[2023-12-31 15:21] LABS: POTASSIUM,K 3.8 mEq/L (3.5-5.1)
[2023-12-31] MEDS: LORazepam 2 MG/ML SDV IVPUSH PRN ×2 (17:38→18:06)
[2023-12-31] MEDS: Albuterol/Ipratropium 3.0-0.5 MG/3 ML Neb Soln NEB PRN (18:03)
[2023-12-31 18:18] LABS: BASE EXCESS ARTERIAL -7.2 (-2-2.0); BICARBONATE,ARTERIAL 17.9 meq/L (22.0-26.0); O2 SATURATION ARTERIAL 90.4 % (96.0-97.0); PCO2 ARTERIAL 36.4 mmHg (35.0-45.0)
[2023-12-31] MEDS: Furosemide 40 MG/4 ML VIAL IVPUSH ONE (18:23)
[2023-12-31] MEDS: Calcium Gluconate 10% 1 GM/10 ML SDV IV ONE (19:46)
[2023-12-31] MEDS: Thiamine 100 MG Tab PO SCH (20:01)
[2024-01-01 09:45] LABS: HEMATOCRIT 39.3 % (42.0-52.0); MEAN CORPUSCULAR HEMOGLOBIN 32.2 pg (28.0-32.0); MEAN CORPUSCULAR HGB CONC 33.1 g/dl (32.0-36.0); MEAN CORPUSCULAR VOLUME 97.3 fl (83.0-99.0); MEAN PLATELET VOLUME 12.3 fl (9.4-12.4); NRBC ABSOLUTE 0.04 (0.00-0.02); NRBC PERCENT 0.8 % (0.0-0.2); PLATELET COUNT,PLT 107 K/mm3 (150-400); RED BLOOD CELL COUNT 4.04 M/mm3 (4.52-5.90); WHITE BLOOD CELL COUNT,WBC 4.76 K/mm3 (3.9-11.3)
[2024-01-01 10:13] LABS: A/G RATIO 0.8 (1-2); ALBUMIN 2.5 g/dl (3.4-5.0); ANION GAP 22.5 (5-15); BUN/CREATININE RATIO 26.4 (14-18); CALCIUM 6.5 mg/dL (8.5-10.1); CREATININE 1.1 mg/dL (0.7-1.3); EST CRCL DRUG DOSING (CG) 92.84 mL/min; MAGNESIUM 2.9 mg/dL (1.8-2.4); PHOSPHORUS 2.9 mg/dL (2.6-4.7)
[2024-01-01 10:58] LABS: POTASSIUM,K 4.5 mEq/L (3.5-5.1); PROTEIN TOTAL,TP 5.7 g/dl (6.4-8.2)
[2024-01-01] MEDS: methylPREDNISolone Sodium Succinate 40 MG/1 ML SDV IVPUSH SCH (11:10)
[2024-01-01] MEDS: Lactated Ringers 1,000 ML IV SCH (13:59)
[2024-01-01] MEDS: Calcium Gluconate 10% 1 GM/10 ML SDV IVPUSH ONE (21:23)
[2024-01-02 07:23] LABS: HEMATOCRIT 37.8 % (42.0-52.0); HEMOGLOBIN 12.6 gm/dl (14.0-18.0); MEAN CORPUSCULAR HEMOGLOBIN 32.1 pg (28.0-32.0); MEAN CORPUSCULAR HGB CONC 33.3 g/dl (32.0-36.0); MEAN CORPUSCULAR VOLUME 96.2 fl (83.0-99.0); MEAN PLATELET VOLUME 11.6 fl (9.4-12.4); NRBC ABSOLUTE 0.06 (0.00-0.02); NRBC PERCENT 1.8 % (0.0-0.2); PLATELET COUNT,PLT 117 K/mm3 (150-400); RED BLOOD CELL COUNT 3.93 M/mm3 (4.52-5.90); WHITE BLOOD CELL COUNT,WBC 3.41 K/mm3 (3.9-11.3)
[2024-01-02 07:46] LABS: A/G RATIO 0.6 (1-2); ALBUMIN 2.1 g/dl (3.4-5.0); BILIRUBIN TOTAL 4.8 mg/dL (0.2-1.0); BUN/CREATININE RATIO 23.3 (14-18); CALCIUM 7.6 mg/dL (8.5-10.1); EST CRCL DRUG DOSING (CG) 85.1 mL/min; PHOSPHORUS 2.3 mg/dL (2.6-4.7)
[2024-01-02 08:03] LABS: CREATININE 1.2 mg/dL (0.7-1.3); PROTEIN TOTAL,TP 5.7 g/dl (6.4-8.2)
[2024-01-02] MEDS: oxyCODONE 5 MG Tab PO PRN (11:07)
[2024-01-02] MEDS: Calcium Carbonate 600 MG Tab PO PRN (19:43)
[2024-01-03] MEDS: Metoprolol Tartrate 5 MG/5 ML SDV IVPUSH ONE (03:02)
[2024-01-03 05:35] LABS: ANION GAP 14.3 (5-15); BUN/CREATININE RATIO 16.3 (14-18); CALCIUM 7.4 mg/dL (8.5-10.1); EST CRCL DRUG DOSING (CG) 127.65 mL/min; MAGNESIUM 2.6 mg/dL (1.8-2.4); PHOSPHORUS 1.1 mg/dL (2.6-4.7)
[2024-01-03 05:39] LABS: CREATININE 0.8 mg/dL (0.7-1.3); POTASSIUM,K 3.3 mEq/L (3.5-5.1)
[2024-01-03] MEDS: Potassium Chloride 20 MEQ Tab.ER PO ONE (08:54)
[2024-01-03] MEDS: Phosphorus #1 250 MG Tab PO ONE (08:54)
[2024-01-03] MEDS: Acetaminophen 325 MG Tab PO PRN (11:13)
[2024-01-03] MEDS: Metoprolol Tartrate 25 MG Tab PO SCH (12:19)
[2024-01-03] MEDS: Sennosides/Docusate Sodium 50-8.6 MG Tab PO PRN (12:19)
[2024-01-03] MEDS ORDERED: Naloxone 0.4 MG/ML SDV IVPUSH PRN (15:47)
[2024-01-03] MEDS: Morphine 2 MG/ML SYRINGE IVPUSH PRN (16:15)
[2024-01-03] MEDS: Pantoprazole 40 MG Tab.CR PO SCH (21:37)
[2024-01-03] MEDS: Melatonin 3 MG Tab PO PRN (21:37)
[2024-01-04 05:35] LABS: ANION GAP 12.5 (5-15); BUN/CREATININE RATIO 11.4 (14-18); EST CRCL DRUG DOSING (CG) 145.89 mL/min; MAGNESIUM 2.2 mg/dL (1.8-2.4)
[2024-01-04 05:37] LABS: CREATININE 0.7 mg/dL (0.7-1.3); POTASSIUM,K 3.5 mEq/L (3.5-5.1)
[2024-01-04] MEDS ORDERED: Potassium Chloride 20 MEQ Tab.ER PO ONE (11:05)
[2024-01-04 12:13] LABS: TSH 0.709 uIU/mL (0.358-3.74)
[2024-01-04 13:28] LABS: FOLIC ACID 7.9 ng/mL (8.6-58.9)
[2024-01-04] MEDS: Potassium Chloride 20 MEQ Tab.ER PO ONE (14:42)
[2024-01-05 05:37] LABS: BASOPHILS PERCENT AUTO 0.2 % (0.0-1.0); EOSINOPHILS PERCENT AUTO 0.2 % (0.0-6.0); HEMATOCRIT 34.8 % (42.0-52.0); HEMOGLOBIN 11.5 gm/dl (14.0-18.0); IMMATURE GRAN ABSOLUTE AUTO 0.78 K/mm3 (0.00-0.05); IMMATURE GRAN PERCENT AUTO 6.1 % (0.0-0.4); LYMPHOCYTES ABSOLUTE AUTO 0.7 K/mm3 (1.0-4.8); LYMPHOCYTES PERCENT AUTO 5.3 % (24.0-44.0); MEAN CORPUSCULAR HEMOGLOBIN 31.8 pg (28.0-32.0); MEAN CORPUSCULAR VOLUME 96.1 fl (83.0-99.0); MONOCYTES ABSOLUTE AUTO 1.6 K/mm3 (0.0-0.8); MONOCYTES PERCENT AUTO 12.6 % (0.0-8.0); NEUTROPHILS ABSOLUTE AUTO 9.7 K/mm3 (1.8-7.7); NEUTROPHILS PERCENT AUTO 75.6 % (41.0-71.0); NRBC ABSOLUTE 0.06 (0.00-0.02); NRBC PERCENT 0.5 % (0.0-0.2); PLATELET COUNT,PLT 152 K/mm3 (150-400); RED BLOOD CELL COUNT 3.62 M/mm3 (4.52-5.90); WHITE BLOOD CELL COUNT,WBC 12.83 K/mm3 (3.9-11.3)
[2024-01-05 05:42] LABS: A/G RATIO 0.5 (1-2); ALBUMIN 1.8 g/dl (3.4-5.0); ANION GAP 10.6 (5-15); BILIRUBIN TOTAL 5.6 mg/dL (0.2-1.0); CALCIUM 8.2 mg/dL (8.5-10.1); EST CRCL DRUG DOSING (CG) 145.89 mL/min; MAGNESIUM 1.8 mg/dL (1.8-2.4); PHOSPHORUS 1.5 mg/dL (2.6-4.7)
[2024-01-05 06:12] LABS: SLIDE REVIEW ABNORMAL SMEAR
[2024-01-05 06:13] LABS: CREATININE 0.7 mg/dL (0.7-1.3); POTASSIUM,K 3.6 mEq/L (3.5-5.1); PROTEIN TOTAL,TP 5.3 g/dl (6.4-8.2)
[2024-01-05 09:31] LABS: LACTIC ACID 0.5 mmol/L (0.4-2.0)
[2024-01-05] MEDS: Polyethylene Glycol 3350 Powder 17 GM Packet PO SCH (11:58)
[2024-01-05] MEDS: Sennosides/Docusate Sodium 50-8.6 MG Tab PO SCH (11:58)
[2024-01-05] MEDS: Lactulose Soln 10 GM/15 ML 30 ML UD Cup PO SCH (16:39)
[2024-01-05] MEDS: Piperacillin/Tazobactam 4.5 GM in Sodium Chloride 0.9% 100 ML IV ONE (18:52)
[2024-01-05] MEDS: Magnesium Sulfate/Water 4 GM in Premix Bag 1 BAG IV ONE (18:52)
[2024-01-05] MEDS: Phosphorus #1 250 MG Tab PO ONE (18:53)
[2024-01-05] MEDS: Potassium Chloride 20 MEQ Tab.ER PO ONE (18:53)
[2024-01-06] MEDS: Piperacillin/Tazobactam 4.5 GM in Sodium Chloride 0.9% 100 ML IV SCH (03:46)
[2024-01-06 05:30] LABS: BASOPHILS ABSOLUTE AUTO 0.1 K/mm3 (0.0-0.2); BASOPHILS PERCENT AUTO 0.4 % (0.0-1.0); EOSINOPHILS PERCENT AUTO 0.1 % (0.0-6.0); HEMATOCRIT 35.1 % (42.0-52.0); HEMOGLOBIN 11.6 gm/dl (14.0-18.0); IMMATURE GRAN ABSOLUTE AUTO 0.89 K/mm3 (0.00-0.05); IMMATURE GRAN PERCENT AUTO 5.7 % (0.0-0.4); LYMPHOCYTES ABSOLUTE AUTO 0.5 K/mm3 (1.0-4.8); LYMPHOCYTES PERCENT AUTO 3.3 % (24.0-44.0); MEAN CORPUSCULAR HEMOGLOBIN 32.1 pg (28.0-32.0); MEAN CORPUSCULAR VOLUME 97.2 fl (83.0-99.0); MEAN PLATELET VOLUME 11.3 fl (9.4-12.4); MONOCYTES ABSOLUTE AUTO 1.5 K/mm3 (0.0-0.8); MONOCYTES PERCENT AUTO 9.4 % (0.0-8.0); NEUTROPHILS ABSOLUTE AUTO 12.6 K/mm3 (1.8-7.7); NEUTROPHILS PERCENT AUTO 81.1 % (41.0-71.0); NRBC ABSOLUTE 0.05 (0.00-0.02); NRBC PERCENT 0.3 % (0.0-0.2); PLATELET COUNT,PLT 191 K/mm3 (150-400); RED BLOOD CELL COUNT 3.61 M/mm3 (4.52-5.90); WHITE BLOOD CELL COUNT,WBC 15.48 K/mm3 (3.9-11.3)
[2024-01-06 05:42] LABS: A/G RATIO 0.5 (1-2); ALBUMIN 1.8 g/dl (3.4-5.0); ANION GAP 11.6 (5-15); BILIRUBIN TOTAL 6.6 mg/dL (0.2-1.0); BUN/CREATININE RATIO 7.5 (14-18); C-REACTIVE PROTEIN 18.85 mg/dL (<0.30); CALCIUM 8.2 mg/dL (8.5-10.1); EST CRCL DRUG DOSING (CG) 127.65 mL/min; PHOSPHORUS 1.2 mg/dL (2.6-4.7)
[2024-01-06 05:49] LABS: POTASSIUM,K 3.6 mEq/L (3.5-5.1)
[2024-01-06 05:50] LABS: CREATININE 0.8 mg/dL (0.7-1.3); PROTEIN TOTAL,TP 5.4 g/dl (6.4-8.2)
[2024-01-06 06:05] LABS: SLIDE REVIEW ABNORMAL SMEAR
[2024-01-06] MEDS ORDERED: Calcium Carbonate 500 MG Tab.Chew PO PRN (07:54)
[2024-01-06] MEDS: Tamsulosin 0.4 MG Cap.ER PO SCH (09:15)
[2024-01-06] MEDS: Sodium Chloride 0.9% 10 ML Syringe FLUSH PRN (11:03)
[2024-01-06] MEDS: Iopamidol 755 Mg/ML 100 ML Bottle IVPUSH ONE (11:03)
[2024-01-06] MEDS: Lactated Ringers 1,000 ML IV SCH (11:06)
[2024-01-06] MEDS: Phosphorus #1 250 MG Tab PO ONE (13:12)
[2024-01-06] MEDS: Ibuprofen 400 MG Tab PO PRN (14:18)
[2024-01-07 04:57] LABS: BASOPHILS PERCENT AUTO 0.3 % (0.0-1.0); EOSINOPHILS ABSOLUTE AUTO 0.1 K/mm3 (0.0-0.4); EOSINOPHILS PERCENT AUTO 0.4 % (0.0-6.0); HEMATOCRIT 29.7 % (42.0-52.0); HEMOGLOBIN 9.7 gm/dl (14.0-18.0); IMMATURE GRAN ABSOLUTE AUTO 0.75 K/mm3 (0.00-0.05); IMMATURE GRAN PERCENT AUTO 5.6 % (0.0-0.4); LYMPHOCYTES ABSOLUTE AUTO 0.5 K/mm3 (1.0-4.8); LYMPHOCYTES PERCENT AUTO 3.8 % (24.0-44.0); MEAN CORPUSCULAR HEMOGLOBIN 31.3 pg (28.0-32.0); MEAN CORPUSCULAR HGB CONC 32.7 g/dl (32.0-36.0); MEAN CORPUSCULAR VOLUME 95.8 fl (83.0-99.0); MEAN PLATELET VOLUME 10.9 fl (9.4-12.4); MONOCYTES ABSOLUTE AUTO 1.3 K/mm3 (0.0-0.8); MONOCYTES PERCENT AUTO 9.6 % (0.0-8.0); NEUTROPHILS ABSOLUTE AUTO 10.8 K/mm3 (1.8-7.7); NEUTROPHILS PERCENT AUTO 80.3 % (41.0-71.0); NRBC ABSOLUTE 0.03 (0.00-0.02); NRBC PERCENT 0.2 % (0.0-0.2); PLATELET COUNT,PLT 189 K/mm3 (150-400); WHITE BLOOD CELL COUNT,WBC 13.41 K/mm3 (3.9-11.3)
[2024-01-07 05:29] LABS: A/G RATIO 0.6 (1-2); ALBUMIN 1.8 g/dl (3.4-5.0); ANION GAP 8.1 (5-15); BILIRUBIN TOTAL 5.9 mg/dL (0.2-1.0); BUN/CREATININE RATIO 8.3 (14-18); C-REACTIVE PROTEIN 14.48 mg/dL (<0.30); CALCIUM 8.1 mg/dL (8.5-10.1); EST CRCL DRUG DOSING (CG) 170.2 mL/min
[2024-01-07 06:07] LABS: CREATININE 0.6 mg/dL (0.7-1.3); POTASSIUM,K 3.1 mEq/L (3.5-5.1)
[2024-01-07 06:08] LABS: PROTEIN TOTAL,TP 5.1 g/dl (6.4-8.2)
[2024-01-07 06:26] LABS: SLIDE REVIEW ABNORMAL SMEAR
[2024-01-07] MEDS ORDERED: Morphine 2 MG/ML SYRINGE SUBCUT PRN (07:14)
[2024-01-07 07:54] LABS: MAGNESIUM 1.9 mg/dL (1.8-2.4); PHOSPHORUS 2.8 mg/dL (2.6-4.7)
[2024-01-07] MEDS: Potassium Chloride 20 MEQ Tab.ER PO ONE (13:22)
[2024-01-07] MEDS ORDERED: Lactated Ringers 1,000 ML IV SCH (15:00)
[2024-01-07] MEDS: Furosemide 40 MG/4 ML VIAL IVPUSH SCH (18:34)
[2024-01-07] MEDS: oxyCODONE 5 MG Tab PO PRN (20:15)
[2024-01-08 05:01] LABS: BASOPHILS ABSOLUTE AUTO 0.1 K/mm3 (0.0-0.2); BASOPHILS PERCENT AUTO 0.5 % (0.0-1.0); EOSINOPHILS PERCENT AUTO 0.2 % (0.0-6.0); HEMOGLOBIN 10.1 gm/dl (14.0-18.0); IMMATURE GRAN PERCENT AUTO 5.5 % (0.0-0.4); LYMPHOCYTES ABSOLUTE AUTO 0.8 K/mm3 (1.0-4.8); LYMPHOCYTES PERCENT AUTO 6.3 % (24.0-44.0); MEAN CORPUSCULAR HGB CONC 32.6 g/dl (32.0-36.0); MEAN CORPUSCULAR VOLUME 98.1 fl (83.0-99.0); MEAN PLATELET VOLUME 10.8 fl (9.4-12.4); MONOCYTES ABSOLUTE AUTO 1.1 K/mm3 (0.0-0.8); MONOCYTES PERCENT AUTO 8.4 % (0.0-8.0); NEUTROPHILS ABSOLUTE AUTO 10.1 K/mm3 (1.8-7.7); NEUTROPHILS PERCENT AUTO 79.1 % (41.0-71.0); NRBC ABSOLUTE 0.04 (0.00-0.02); NRBC PERCENT 0.3 % (0.0-0.2); PLATELET COUNT,PLT 234 K/mm3 (150-400); RED BLOOD CELL COUNT 3.16 M/mm3 (4.52-5.90); WHITE BLOOD CELL COUNT,WBC 12.74 K/mm3 (3.9-11.3)
[2024-01-08 05:37] LABS: A/G RATIO 0.5 (1-2); ALBUMIN 1.8 g/dl (3.4-5.0); ANION GAP 11.4 (5-15); BILIRUBIN TOTAL 5.5 mg/dL (0.2-1.0); C-REACTIVE PROTEIN 13.88 mg/dL (<0.30); CALCIUM 8.4 mg/dL (8.5-10.1); EST CRCL DRUG DOSING (CG) 204.24 mL/min
[2024-01-08 05:38] LABS: CREATININE 0.5 mg/dL (0.7-1.3); POTASSIUM,K 3.4 mEq/L (3.5-5.1)
[2024-01-08 05:39] LABS: PROTEIN TOTAL,TP 5.3 g/dl (6.4-8.2)
[2024-01-08 06:03] LABS: SLIDE REVIEW ABNORMAL SMEAR
[2024-01-08] MEDS ORDERED: Furosemide 40 MG/4 ML VIAL IVPUSH SCH (15:02)
[2024-01-09 08:30] LABS: BASOPHILS ABSOLUTE AUTO 0.1 K/mm3 (0.0-0.2); BASOPHILS PERCENT AUTO 0.6 % (0.0-1.0); EOSINOPHILS PERCENT AUTO 0.3 % (0.0-6.0); HEMATOCRIT 31.5 % (42.0-52.0); HEMOGLOBIN 10.1 gm/dl (14.0-18.0); IMMATURE GRAN ABSOLUTE AUTO 0.71 K/mm3 (0.00-0.05); IMMATURE GRAN PERCENT AUTO 5.7 % (0.0-0.4); LYMPHOCYTES ABSOLUTE AUTO 0.9 K/mm3 (1.0-4.8); LYMPHOCYTES PERCENT AUTO 7.2 % (24.0-44.0); MEAN CORPUSCULAR HEMOGLOBIN 31.6 pg (28.0-32.0); MEAN CORPUSCULAR HGB CONC 32.1 g/dl (32.0-36.0); MEAN CORPUSCULAR VOLUME 98.4 fl (83.0-99.0); MEAN PLATELET VOLUME 10.5 fl (9.4-12.4); MONOCYTES ABSOLUTE AUTO 0.9 K/mm3 (0.0-0.8); MONOCYTES PERCENT AUTO 7.4 % (0.0-8.0); NEUTROPHILS ABSOLUTE AUTO 9.9 K/mm3 (1.8-7.7); NEUTROPHILS PERCENT AUTO 78.8 % (41.0-71.0); PLATELET COUNT,PLT 305 K/mm3 (150-400)
[2024-01-09 08:48] LABS: SLIDE REVIEW ABNORMAL SMEAR
[2024-01-09 09:08] LABS: A/G RATIO 0.5 (1-2); ALBUMIN 1.9 g/dl (3.4-5.0); ANION GAP 12.6 (5-15); BILIRUBIN TOTAL 5.1 mg/dL (0.2-1.0); BUN/CREATININE RATIO 12.9 (14-18); CALCIUM 8.4 mg/dL (8.5-10.1); EST CRCL DRUG DOSING (CG) 145.89 mL/min; POTASSIUM,K 3.6 mEq/L (3.5-5.1)
[2024-01-09 09:39] LABS: CREATININE 0.7 mg/dL (0.7-1.3); PROTEIN TOTAL,TP 5.7 g/dl (6.4-8.2)
[2024-01-09 22:43] LABS: VITAMIN B1, WHOLE BLOOD 150 nmol/L (70-180)
== END 2024-01-09 12:50 | disposition home or self-care (01) | DRG 775 ==
LOC: JD.ED 03:28 → JD.ICU 10:00 → JD.MS 01-08 13:52
PROVIDERS: ADMIT Student in an Organized Health Care Education/Training Program; ATTEND Student in an Organized Health Care Education/Training Program
DX: F10.139 Alcohol abuse with withdrawal, unspecified (principal); K85.22 Alcohol induced acute pancreatitis with infected necrosis; G31.2 Degeneration of nervous system due to alcohol; J96.01 Acute respiratory failure with hypoxia; N17.9 Acute kidney failure, unspecified; I85.00 Esophageal varices without bleeding; N39.0 Urinary tract infection, site not specified; K70.10 Alcoholic hepatitis without ascites; F10.129 Alcohol abuse with intoxication, unspecified; Y90.7 Blood alcohol level of 200-239 mg/100 ml; R56.9 Unspecified convulsions; K76.0 Fatty (change of) liver, not elsewhere classified; R45.1 Restlessness and agitation; Z68.30 Body mass index [BMI] 30.0-30.9, adult; R44.3 Hallucinations, unspecified; I10 Essential (primary) hypertension; K21.9 Gastro-esophageal reflux disease without esophagitis; J18.9 Pneumonia, unspecified organism; F32.A Depression, unspecified; D69.59 Other secondary thrombocytopenia; E66.9 Obesity, unspecified; E86.0 Dehydration; K59.00 Constipation, unspecified; R33.9 Retention of urine, unspecified; R74.01 Elevation of levels of liver transaminase levels; F17.210 Nicotine dependence, cigarettes, uncomplicated; Z88.8 Allergy status to other drugs, medicaments and biological substances; Z86.16 Personal history of COVID-19; Z90.49 Acquired absence of other specified parts of digestive tract; Z98.890 Other specified postprocedural states
CPT/HCPCS: 0241U; 36415; 36600; 51702; 70450; 70450-26; 71045; 71045-26; 74019; 74019-26; 74177; 74177-26; 80048; 80053; 80306; 80307; 81001; 82140; 82607; 82746; 82803; 82947; 83605; 83690; 83735; 84100; 84425; 84443; 84484; 85025; 85027; 85610; 86140; 87040; 87086; 87641; 93005; 93010; 94640; 94761; 96361; 96365; 96366; 96367; 96375; 97110-GP; 97161-GP; 99285; 99285-25; A9270-GY; C1758; J0612; J0696; J1650; J1815; J1940; J2060; J2270; J2405; J2470; J2543; J2919; J3475; J3480; J3490; J7030; J7050; J7120; J7620-GY; Q9967

== ENCOUNTER 2024-03-02 16:57 | Emergency (ER) | payer BC, MEDICAID ==
[2024-03-02] MEDS: Diphtheria,Pertussis(Acell),Tetanus Vaccine 0.5 ML Syringe IM ONE (18:15)
[2024-03-02] MEDS: Lidocaine 1% 10 ML MDV INJECT ONE (18:49)
== END 2024-03-02 20:05 | disposition home or self-care (01) ==
LOC: JD.ED 16:57
DX: S01.111A Laceration without foreign body of right eyelid and periocular area, initial encounter (principal); S09.90XA Unspecified injury of head, initial encounter; I10 Essential (primary) hypertension; K21.9 Gastro-esophageal reflux disease without esophagitis; E66.9 Obesity, unspecified; Z86.16 Personal history of COVID-19; F17.210 Nicotine dependence, cigarettes, uncomplicated; Z79.899 Other long term (current) drug therapy; Z88.8 Allergy status to other drugs, medicaments and biological substances; Z68.27 Body mass index [BMI] 27.0-27.9, adult; Z23 Encounter for immunization; W19.XXXA Unspecified fall, initial encounter
CPT/HCPCS: 12002; 12013; 70450; 70450-26; 90471; 90715; 99282; 99284-25; J3490

== ENCOUNTER 2024-05-26 07:31 | Inpatient (IN) | payer BC, MEDICAID ==
[2024-05-26] MEDS ORDERED: Sodium Chloride 0.9% 10 ML Syringe FLUSH PRN (07:47)
[2024-05-26] MEDS: LORazepam 2 MG/ML SDV IVPUSH ONE ×2 (07:54→08:39)
[2024-05-26] MEDS: Sodium Chloride 0.9% 1,000 ML IV ONE ×2 (07:54→09:52)
[2024-05-26] MEDS: Ondansetron 4 MG/2 ML SDV IVPUSH ONE (07:57)
[2024-05-26 07:58] LABS: BASOPHILS PERCENT AUTO 0.5 % (0.0-1.0); EOSINOPHILS PERCENT AUTO 0.7 % (0.0-6.0); HEMATOCRIT 42.1 % (42.0-52.0); HEMOGLOBIN 13.6 gm/dl (14.0-18.0); IMMATURE GRAN ABSOLUTE AUTO 0.02 K/mm3 (0.00-0.05); IMMATURE GRAN PERCENT AUTO 0.5 % (0.0-0.4); LYMPHOCYTES ABSOLUTE AUTO 0.8 K/mm3 (1.0-4.8); LYMPHOCYTES PERCENT AUTO 18.8 % (24.0-44.0); MEAN CORPUSCULAR HEMOGLOBIN 32.1 pg (28.0-32.0); MEAN CORPUSCULAR HGB CONC 32.3 g/dl (32.0-36.0); MEAN CORPUSCULAR VOLUME 99.3 fl (83.0-99.0); MEAN PLATELET VOLUME 10.1 fl (9.4-12.4); MONOCYTES ABSOLUTE AUTO 0.7 K/mm3 (0.0-0.8); NEUTROPHILS ABSOLUTE AUTO 2.8 K/mm3 (1.8-7.7); NEUTROPHILS PERCENT AUTO 63.5 % (41.0-71.0); PLATELET COUNT,PLT 94 K/mm3 (150-400); RED BLOOD CELL COUNT 4.24 M/mm3 (4.52-5.90); WHITE BLOOD CELL COUNT,WBC 4.32 K/mm3 (3.9-11.3)
[2024-05-26 08:21] LABS: BARBITURATE SCREEN,URINE NEGATIVE (CUTOFF=200); BENZODIAZEPINES SCREEN,URINE NEGATIVE (CUTOFF=150); BUPRENORPHINE SCREEN,URINE NEGATIVE (CUTOFF=10); METHADONE SCREEN, URINE NEGATIVE (CUT0FF=200); METHAMPHETAMINES SCREEN, URINE NEGATIVE (CUTOFF=500); OXYCODONE SCREEN,URINE NEGATIVE (CUT0FF=100); THC SCREEN,URINE 20 NG/ML NEGATIVE (CUTOFF=50)
[2024-05-26 08:23] LABS: AMPHETAMINES SCREEN, URINE NEGATIVE (CUTOFF=500)
[2024-05-26 08:23] LABS: A/G RATIO 1.1 (1-2); ALBUMIN 4.3 g/dl (3.4-5.0); ANION GAP 17.9 (5-15); BILIRUBIN TOTAL 2.4 mg/dL (0.2-1.0); BUN/CREATININE RATIO 7.8 (14-18); CALCIUM 9.7 mg/dL (8.5-10.1); CREATININE 0.9 mg/dL (0.7-1.3); EST CRCL DRUG DOSING (CG) 113.47 mL/min; POTASSIUM,K 2.9 mEq/L (3.5-5.1); PROTEIN TOTAL,TP 8.1 g/dl (6.4-8.2); TSH 0.427 uIU/mL (0.358-3.74)
[2024-05-26] MEDS: Metoclopramide 10 MG/2 ML SDV IVPUSH ONE (08:43)
[2024-05-26] MEDS: Potassium Chloride 10 MEQ in Premix Bag 1 BAG IV SCH (08:52)
[2024-05-26 09:57] LABS: SLIDE REVIEW ABNORMAL SMEAR
[2024-05-26] MEDS ORDERED: Ondansetron 4 MG/2 ML SDV IVPUSH PRN (12:26)
[2024-05-26] MEDS ORDERED: Acetaminophen 325 MG Tab PO PRN ×3 (12:43→13:51)
[2024-05-26] MEDS: LORazepam 2 MG/ML SDV IVPUSH PRN (13:08)
[2024-05-26] MEDS: Nicotine 14 MG/24 Hr Patch TRDERM SCH (13:08)
[2024-05-26] MEDS: Magnesium Sulfate/Water Premix 4 GM in Premix Bag 1 BAG IV ONE (13:27)
[2024-05-26] MEDS ORDERED: hydrALAZINE 20 MG/ML SDV IVPUSH PRN (13:49)
[2024-05-26] MEDS ORDERED: Labetalol 100 MG/20 ML MDV IVPUSH PRN (13:49)
[2024-05-26] MEDS ORDERED: oxyCODONE 5 MG Tab PO PRN (13:51)
[2024-05-26] MEDS ORDERED: LORazepam 2 MG/ML SDV IVPUSH PRN (13:51)
[2024-05-26] MEDS ORDERED: Morphine 2 MG/ML SYRINGE IVPUSH PRN (13:51)
[2024-05-26] MEDS ORDERED: Sennosides/Docusate Sodium 50-8.6 MG Tab PO PRN (13:51)
[2024-05-26] MEDS ORDERED: Naloxone 0.4 MG/ML SDV IVPUSH PRN (13:51)
[2024-05-26] MEDS ORDERED: Ondansetron 4 MG/2 ML SDV IV PRN (13:51)
[2024-05-26] MEDS: Potassium Chloride 20 MEQ Tab.ER PO ONE (14:37)
[2024-05-26 14:40] LABS: INR 1.22; PROTHROMBIN TIME 12.8 SECONDS (9.7-12.0)
[2024-05-26] MEDS: Metoclopramide 10 MG/2 ML SDV IVPUSH PRN (16:34)
[2024-05-26] MEDS: Famotidine 20 MG/2 ML SDV IVPUSH SCH (20:01)
[2024-05-26] MEDS: Multivitamin Tab PO SCH (20:01)
[2024-05-26] MEDS: Melatonin 3 MG Tab PO PRN (23:08)
[2024-05-27] MEDS: LORazepam 2 MG/ML SDV IVPUSH PRN ×2 (00:03→03:44)
[2024-05-27] MEDS: LORazepam 1 MG Tab PO PRN (02:54)
[2024-05-27 04:37] LABS: HEMATOCRIT 37.6 % (42.0-52.0); HEMOGLOBIN 13.6 gm/dl (14.0-18.0); MEAN CORPUSCULAR HEMOGLOBIN 32.9 pg (28.0-32.0); MEAN CORPUSCULAR HGB CONC 36.2 g/dl (32.0-36.0); MEAN PLATELET VOLUME 10.6 fl (9.4-12.4); PLATELET COUNT,PLT 70 K/mm3 (150-400); RED BLOOD CELL COUNT 4.14 M/mm3 (4.52-5.90); WHITE BLOOD CELL COUNT,WBC 3.19 K/mm3 (3.9-11.3)
[2024-05-27 04:42] LABS: MEAN CORPUSCULAR VOLUME 90.8 fl (83.0-99.0)
[2024-05-27 05:20] LABS: A/G RATIO 1.1 (1-2); BILIRUBIN TOTAL 2.1 mg/dL (0.2-1.0); BUN/CREATININE RATIO 4.3 (14-18); CALCIUM 9.4 mg/dL (8.5-10.1); CREATININE 0.7 mg/dL (0.7-1.3); EST CRCL DRUG DOSING (CG) 145.89 mL/min; MAGNESIUM 1.5 mg/dL (1.8-2.4); PROTEIN TOTAL,TP 7.7 g/dl (6.4-8.2); TSH 1.212 uIU/mL (0.358-3.74); VITAMIN D,25-HYDROXY 15.9 ng/ml (30.0-100.0)
[2024-05-27 05:57] LABS: FOLIC ACID 13.6 ng/mL (8.6-58.9)
[2024-05-27] MEDS: Enoxaparin 40 MG/0.4 ML Syringe SUBCUT SCH (07:35)
[2024-05-27] MEDS: Potassium Phosphates 30 MMOLE in Sodium Chloride 0.9% 500 ML IV ONE (09:06)
[2024-05-27] MEDS: Magnesium Sulfate/Water Premix 4 GM in Premix Bag 1 BAG IV ONE (09:07)
[2024-05-27] MEDS: Cholecalciferol (Vitamin D3) 5,000 UNIT Cap PO SCH (09:13)
[2024-05-27] MEDS: Metoprolol Tartrate 5 MG/5 ML SDV IVPUSH PRN (20:55)
[2024-05-28 04:43] LABS: BASOPHILS PERCENT AUTO 0.8 % (0.0-1.0); EOSINOPHILS ABSOLUTE AUTO 0.1 K/mm3 (0.0-0.4); EOSINOPHILS PERCENT AUTO 1.5 % (0.0-6.0); HEMATOCRIT 38.3 % (42.0-52.0); HEMOGLOBIN 13.5 gm/dl (14.0-18.0); IMMATURE GRAN ABSOLUTE AUTO 0.01 K/mm3 (0.00-0.05); IMMATURE GRAN PERCENT AUTO 0.2 % (0.0-0.4); LYMPHOCYTES ABSOLUTE AUTO 1.1 K/mm3 (1.0-4.8); LYMPHOCYTES PERCENT AUTO 23.8 % (24.0-44.0); MEAN CORPUSCULAR HEMOGLOBIN 32.7 pg (28.0-32.0); MEAN CORPUSCULAR HGB CONC 35.2 g/dl (32.0-36.0); MEAN CORPUSCULAR VOLUME 92.7 fl (83.0-99.0); MEAN PLATELET VOLUME 9.9 fl (9.4-12.4); MONOCYTES ABSOLUTE AUTO 0.5 K/mm3 (0.0-0.8); MONOCYTES PERCENT AUTO 11.2 % (0.0-8.0); NEUTROPHILS PERCENT AUTO 62.5 % (41.0-71.0); PLATELET COUNT,PLT 86 K/mm3 (150-400); RED BLOOD CELL COUNT 4.13 M/mm3 (4.52-5.90); WHITE BLOOD CELL COUNT,WBC 4.75 K/mm3 (3.9-11.3)
[2024-05-28 05:23] LABS: A/G RATIO 0.9 (1-2); ALBUMIN 3.4 g/dl (3.4-5.0); ANION GAP 18.6 (5-15); BILIRUBIN TOTAL 1.9 mg/dL (0.2-1.0); BUN/CREATININE RATIO 13.3 (14-18); CALCIUM 9.1 mg/dL (8.5-10.1); CREATININE 0.6 mg/dL (0.7-1.3); EST CRCL DRUG DOSING (CG) 170.2 mL/min; MAGNESIUM 2.2 mg/dL (1.8-2.4); PHOSPHORUS 5.3 mg/dL (2.6-4.7)
[2024-05-28 05:53] LABS: POTASSIUM,K 3.6 mEq/L (3.5-5.1)
[2024-05-28 06:14] LABS: SLIDE REVIEW ABNORMAL SMEAR
[2024-05-28] MEDS: Potassium Chloride 20 MEQ Tab.ER PO ONE (09:39)
[2024-05-28] MEDS: Carboxymethylcellulose Sodium 1% Ophth Gel 15 ML Bottle EYEBOTH PRN (11:24)
[2024-05-29 05:20] LABS: ANION GAP 13.4 (5-15); CREATININE 0.6 mg/dL (0.7-1.3); EST CRCL DRUG DOSING (CG) 170.2 mL/min; POTASSIUM,K 3.4 mEq/L (3.5-5.1)
[2024-05-29] MEDS ORDERED: Sodium Chloride 0.9% 100 ML IV SCH (10:30)
[2024-05-29] MEDS ORDERED: Sodium Chloride 0.9% 10 ML Syringe FLUSH PRN (11:02)
[2024-05-29] MEDS: Iopamidol 755 Mg/ML 100 ML Bottle IVPUSH ONE ×2 (12:45→13:28)
[2024-05-29] MEDS: Sodium Chloride 0.9% 100 ML IV SCH (12:46)
[2024-05-30 20:42] LABS: VITAMIN B1, WHOLE BLOOD 105 nmol/L (70-180)
== END 2024-05-29 14:45 | disposition home or self-care (01) | DRG 775 ==
LOC: JD.ED 07:31 → JD.ICU 09:31
PROVIDERS: ADMIT Student in an Organized Health Care Education/Training Program; ATTEND Family Medicine
DX: F10.131 Alcohol abuse with withdrawal delirium (principal); D69.6 Thrombocytopenia, unspecified; G45.8 Other transient cerebral ischemic attacks and related syndromes; H54.7 Unspecified visual loss; I10 Essential (primary) hypertension; K21.9 Gastro-esophageal reflux disease without esophagitis; F41.9 Anxiety disorder, unspecified; F32.A Depression, unspecified; E66.9 Obesity, unspecified; E78.00 Pure hypercholesterolemia, unspecified; R74.01 Elevation of levels of liver transaminase levels; E80.6 Other disorders of bilirubin metabolism; E87.6 Hypokalemia; E83.42 Hypomagnesemia; M79.601 Pain in right arm; W19.XXXA Unspecified fall, initial encounter; R55 Syncope and collapse; Z68.26 Body mass index [BMI] 26.0-26.9, adult; Z86.16 Personal history of COVID-19; I25.2 Old myocardial infarction; Z88.8 Allergy status to other drugs, medicaments and biological substances; Z79.899 Other long term (current) drug therapy; Z90.49 Acquired absence of other specified parts of digestive tract; Z98.890 Other specified postprocedural states
CPT/HCPCS: 36415; 70450; 70450-26; 70498; 70498-26; 72125; 72125-26; 73060-26-RT; 73060-RT; 80048; 80053; 80143; 80179; 80306; 80307; 82306; 82607; 82746; 83735; 84100; 84425; 84443; 85025; 85027; 85610; 93005; 93010; 93306; 93880; 93880-26; 96361; 96365; 96375; 96376; 97110-GP; 97112-GP; 97116-GP; 97162-GP; 99223; 99232; 99239; 99284; 99285-25; A9270-GY; C1758; J1650; J2060; J2405; J2765; J3475; J3480; J3490; J7030; J7040; Q9967

== ENCOUNTER 2024-06-13 10:47 | Inpatient (IN) | payer BC, MEDICAID ==
[2024-06-13 11:29] LABS: BASOPHILS ABSOLUTE AUTO 0.1 K/mm3 (0.0-0.2); BASOPHILS PERCENT AUTO 1.2 % (0.0-1.0); EOSINOPHILS ABSOLUTE AUTO 0.1 K/mm3 (0.0-0.4); EOSINOPHILS PERCENT AUTO 3.1 % (0.0-6.0); HEMATOCRIT 42.8 % (42.0-52.0); HEMOGLOBIN 14.5 gm/dl (14.0-18.0); IMMATURE GRAN ABSOLUTE AUTO 0.02 K/mm3 (0.00-0.05); IMMATURE GRAN PERCENT AUTO 0.5 % (0.0-0.4); LYMPHOCYTES ABSOLUTE AUTO 0.9 K/mm3 (1.0-4.8); LYMPHOCYTES PERCENT AUTO 20.4 % (24.0-44.0); MEAN CORPUSCULAR HEMOGLOBIN 32.1 pg (28.0-32.0); MEAN CORPUSCULAR HGB CONC 33.9 g/dl (32.0-36.0); MEAN CORPUSCULAR VOLUME 94.7 fl (83.0-99.0); MONOCYTES ABSOLUTE AUTO 0.3 K/mm3 (0.0-0.8); MONOCYTES PERCENT AUTO 7.7 % (0.0-8.0); NEUTROPHILS ABSOLUTE AUTO 2.8 K/mm3 (1.8-7.7); NEUTROPHILS PERCENT AUTO 67.1 % (41.0-71.0); PLATELET COUNT,PLT 124 K/mm3 (150-400); RED BLOOD CELL COUNT 4.52 M/mm3 (4.52-5.90); WHITE BLOOD CELL COUNT,WBC 4.16 K/mm3 (3.9-11.3)
[2024-06-13] MEDS: Sodium Chloride 0.9% 1,000 ML IV SCH ×2 (11:35→14:47)
[2024-06-13] MEDS: Ondansetron 4 MG/2 ML SDV IVPUSH ONE ×2 (11:37→14:04)
[2024-06-13] MEDS: Thiamine 200 MG/2 ML MDV IVPUSH ONE (11:38)
[2024-06-13] MEDS: LORazepam 2 MG/ML SDV IVPUSH ONE (11:38)
[2024-06-13] MEDS: Acetaminophen 325 MG Tab PO ONE ×2 (11:40→11:42)
[2024-06-13 11:41] LABS: INR 1.11; PROTHROMBIN TIME 11.7 SECONDS (9.7-12.0)
[2024-06-13] MEDS: Pseudoephedrine 30 MG Tab PO ONE (11:42)
[2024-06-13] MEDS: Sodium Chloride 0.9% 2,500 ML IV ONE (11:42)
[2024-06-13] MEDS: Ibuprofen 800 MG Tab PO ONE (11:42)
[2024-06-13 11:47] LABS: A/G RATIO 1.1 (1-2); ALANINE AMINOTRANSFERASE,ALT 86 U/L (16-63); ALBUMIN 4.2 g/dl (3.4-5.0); ALKALINE PHOSPHATASE 97 U/L (46-116); ANION GAP 21.4 (5-15); ASPARTATE AMNIOTRANSFERASE,AST 147 U/L (15-37); BILIRUBIN TOTAL 1.1 mg/dL (0.2-1.0); BLOOD UREA NITROGEN,BUN 5 mg/dL (7-18); BUN/CREATININE RATIO 6.3 (14-18); CALCIUM 9.4 mg/dL (8.5-10.1); CARBON DIOXIDE,CO2 27 mEq/L (21-32); CHLORIDE,CL 96 mEq/L (98-107); CREATINE KINASE,CK 111 U/L (39-308); CREATININE 0.8 mg/dL (0.7-1.3); EST CRCL DRUG DOSING (CG) 127.65 mL/min; ESTIMATED GFR 118 mL/min (>60); ETHANOL BLOOD MEDICAL 0.09 gm% (0.00); GLUCOSE RANDOM 155 mg/dL (70-99); LIPASE 85 U/L (16-77); MAGNESIUM 1.2 mg/dL (1.8-2.4); POTASSIUM,K 3.4 mEq/L (3.5-5.1); SODIUM,NA 141 mEq/L (136-145)
[2024-06-13 11:54] LABS: ACETAMINOPHEN 0 ug/mL (10-30); TROPONIN I HIGH SENSITIVITY < 4 pg/mL (<=76)
[2024-06-13] MEDS: PHENobarbitaL sodium 260 MG in Sodium Chloride 0.9% 100 ML IV ONE (12:05)
[2024-06-13] MEDS: Pantoprazole 40 MG Vial IVPUSH ONE (12:06)
[2024-06-13] MEDS: Folic Acid 1 MG Tab PO ONE (12:08)
[2024-06-13] MEDS: Multivitamin Tab PO STA (12:08)
[2024-06-13] MEDS: Folic Acid 50 MG/10 ML MDV IV STA (12:08)
[2024-06-13] MEDS: Magnesium Sulfate/Water Premix 4 GM in Premix Bag 1 BAG IV ONE (13:13)
[2024-06-13 14:10] LABS: BARBITURATE SCREEN,URINE PRESUMPTIVE POSITIVE (CUTOFF=200); BENZODIAZEPINES SCREEN,URINE PRESUMPTIVE POSITIVE (CUTOFF=150); BUPRENORPHINE SCREEN,URINE NEGATIVE (CUTOFF=10); METHADONE SCREEN, URINE NEGATIVE (CUT0FF=200); METHAMPHETAMINES SCREEN, URINE NEGATIVE (CUTOFF=500); OXYCODONE SCREEN,URINE NEGATIVE (CUT0FF=100); THC SCREEN,URINE 20 NG/ML NEGATIVE (CUTOFF=50)
[2024-06-13 14:11] LABS: AMPHETAMINES SCREEN, URINE NEGATIVE (CUTOFF=500)
[2024-06-13] MEDS: PHENobarbitaL sodium 130 MG in Sodium Chloride 0.9% 100 ML IV ONE ×2 (14:47→21:53)
[2024-06-13] MEDS ORDERED: Acetaminophen 325 MG Tab PO PRN (14:48)
[2024-06-13] MEDS: LORazepam 2 MG/ML SDV IV PRN (16:12)
[2024-06-13] MEDS: Potassium Chloride 20 MEQ Tab.ER PO ONE (16:13)
[2024-06-13] MEDS: Nicotine 14 MG/24 Hr Patch TRDERM SCH (20:27)
[2024-06-14] MEDS: LORazepam 2 MG/ML SDV IV PRN (02:06)
[2024-06-14 05:33] LABS: BASOPHILS PERCENT AUTO 1.2 % (0.0-1.0); EOSINOPHILS ABSOLUTE AUTO 0.1 K/mm3 (0.0-0.4); HEMATOCRIT 35.9 % (42.0-52.0); IMMATURE GRAN ABSOLUTE AUTO 0.01 K/mm3 (0.00-0.05); IMMATURE GRAN PERCENT AUTO 0.4 % (0.0-0.4); LYMPHOCYTES ABSOLUTE AUTO 0.8 K/mm3 (1.0-4.8); LYMPHOCYTES PERCENT AUTO 33.3 % (24.0-44.0); MEAN CORPUSCULAR HGB CONC 32.6 g/dl (32.0-36.0); MEAN PLATELET VOLUME 9.9 fl (9.4-12.4); MONOCYTES ABSOLUTE AUTO 0.2 K/mm3 (0.0-0.8); MONOCYTES PERCENT AUTO 8.4 % (0.0-8.0); NEUTROPHILS ABSOLUTE AUTO 1.4 K/mm3 (1.8-7.7); NEUTROPHILS PERCENT AUTO 54.7 % (41.0-71.0); PLATELET COUNT,PLT 76 K/mm3 (150-400); RED BLOOD CELL COUNT 3.66 M/mm3 (4.52-5.90)
[2024-06-14 05:45] LABS: HEMOGLOBIN 11.7 gm/dl (14.0-18.0); WHITE BLOOD CELL COUNT,WBC 2.49 K/mm3 (3.9-11.3)
[2024-06-14 05:46] LABS: MEAN CORPUSCULAR VOLUME 98.1 fl (83.0-99.0)
[2024-06-14 05:55] LABS: ANION GAP 13.7 (5-15); CALCIUM 8.5 mg/dL (8.5-10.1); CREATININE 0.6 mg/dL (0.7-1.3); EST CRCL DRUG DOSING (CG) 170.2 mL/min; POTASSIUM,K 3.7 mEq/L (3.5-5.1); PROTEIN TOTAL,TP 6.2 g/dl (6.4-8.2)
[2024-06-14 05:56] LABS: ALBUMIN 3.1 g/dl (3.4-5.0); BILIRUBIN TOTAL 1.4 mg/dL (0.2-1.0); MAGNESIUM 2.2 mg/dL (1.8-2.4)
[2024-06-14 06:22] LABS: SLIDE REVIEW ABNORMAL SMEAR
[2024-06-14] MEDS: Pantoprazole 40 MG Tab.CR PO SCH (06:42)
[2024-06-14] MEDS: Thiamine 200 MG/2 ML MDV IVPUSH SCH (08:30)
[2024-06-14] MEDS: Enoxaparin 40 MG/0.4 ML Syringe SUBCUT SCH (08:31)
[2024-06-14] MEDS: Multivitamin Tab PO SCH (08:34)
[2024-06-14] MEDS: Folic Acid 50 MG/10 ML MDV IV SCH (10:59)
[2024-06-14] MEDS: Sodium Chloride 0.9% 1,000 ML IV SCH (15:22)
[2024-06-14] MEDS: LORazepam 2 MG/ML SDV ONE (21:03)
[2024-06-14] MEDS: LORazepam 2 MG/ML SDV IVPUSH ONE (21:04)
[2024-06-15 08:08] LABS: BASE EXCESS ARTERIAL 0.3 (-2-2.0); BICARBONATE,ARTERIAL 23.5 meq/L (22.0-26.0); O2 SATURATION ARTERIAL 90.7 % (96.0-97.0); PCO2 ARTERIAL 34.9 mmHg (35.0-45.0)
[2024-06-15] MEDS: Furosemide 20 MG/2 ML VIAL IVPUSH ONE (09:31)
[2024-06-15 10:16] LABS: BASOPHILS PERCENT AUTO 0.4 % (0.0-1.0); EOSINOPHILS ABSOLUTE AUTO 0.1 K/mm3 (0.0-0.4); EOSINOPHILS PERCENT AUTO 1.3 % (0.0-6.0); HEMATOCRIT 40.1 % (42.0-52.0); HEMOGLOBIN 13.5 gm/dl (14.0-18.0); IMMATURE GRAN ABSOLUTE AUTO 0.05 K/mm3 (0.00-0.05); IMMATURE GRAN PERCENT AUTO 1.1 % (0.0-0.4); LYMPHOCYTES ABSOLUTE AUTO 0.5 K/mm3 (1.0-4.8); LYMPHOCYTES PERCENT AUTO 11.9 % (24.0-44.0); MEAN CORPUSCULAR HEMOGLOBIN 32.2 pg (28.0-32.0); MEAN CORPUSCULAR HGB CONC 33.7 g/dl (32.0-36.0); MEAN CORPUSCULAR VOLUME 95.7 fl (83.0-99.0); MONOCYTES ABSOLUTE AUTO 0.5 K/mm3 (0.0-0.8); MONOCYTES PERCENT AUTO 10.8 % (0.0-8.0); NEUTROPHILS ABSOLUTE AUTO 3.3 K/mm3 (1.8-7.7); NEUTROPHILS PERCENT AUTO 74.5 % (41.0-71.0); PLATELET COUNT,PLT 67 K/mm3 (150-400); RED BLOOD CELL COUNT 4.19 M/mm3 (4.52-5.90); WHITE BLOOD CELL COUNT,WBC 4.45 K/mm3 (3.9-11.3)
[2024-06-15 10:28] LABS: A/G RATIO 0.9 (1-2); ALBUMIN 3.2 g/dl (3.4-5.0); ANION GAP 13.5 (5-15); BILIRUBIN TOTAL 1.7 mg/dL (0.2-1.0); BUN/CREATININE RATIO 6.7 (14-18); CALCIUM 8.7 mg/dL (8.5-10.1); CREATININE 0.6 mg/dL (0.7-1.3); EST CRCL DRUG DOSING (CG) 170.2 mL/min; POTASSIUM,K 3.5 mEq/L (3.5-5.1); PROTEIN TOTAL,TP 6.8 g/dl (6.4-8.2)
[2024-06-15] MEDS: metroNIDAZOLE/Normal Saline 500 MG in Premix Bag 1 BAG IV SCH (12:12)
[2024-06-15] MEDS: cefTRIAXone 1 GM Vial IVPUSH SCH (12:12)
[2024-06-15] MEDS: PHENobarbital Sodium 65 MG/ML SDV IVPUSH ONE (12:12)
[2024-06-15 14:11] LABS: LACTIC ACID 1.3 mmol/L (0.4-2.0)
[2024-06-16 07:40] LABS: BASOPHILS PERCENT AUTO 0.6 % (0.0-1.0); EOSINOPHILS ABSOLUTE AUTO 0.1 K/mm3 (0.0-0.4); EOSINOPHILS PERCENT AUTO 2.1 % (0.0-6.0); HEMATOCRIT 38.9 % (42.0-52.0); HEMOGLOBIN 12.9 gm/dl (14.0-18.0); IMMATURE GRAN ABSOLUTE AUTO 0.02 K/mm3 (0.00-0.05); IMMATURE GRAN PERCENT AUTO 0.3 % (0.0-0.4); LYMPHOCYTES ABSOLUTE AUTO 0.9 K/mm3 (1.0-4.8); LYMPHOCYTES PERCENT AUTO 14.2 % (24.0-44.0); MEAN CORPUSCULAR HGB CONC 33.2 g/dl (32.0-36.0); MEAN CORPUSCULAR VOLUME 96.5 fl (83.0-99.0); MEAN PLATELET VOLUME 10.4 fl (9.4-12.4); MONOCYTES ABSOLUTE AUTO 0.7 K/mm3 (0.0-0.8); MONOCYTES PERCENT AUTO 11.5 % (0.0-8.0); NEUTROPHILS ABSOLUTE AUTO 4.4 K/mm3 (1.8-7.7); NEUTROPHILS PERCENT AUTO 71.3 % (41.0-71.0); PLATELET COUNT,PLT 76 K/mm3 (150-400); RED BLOOD CELL COUNT 4.03 M/mm3 (4.52-5.90); WHITE BLOOD CELL COUNT,WBC 6.18 K/mm3 (3.9-11.3)
[2024-06-16 08:07] LABS: A/G RATIO 0.8 (1-2); ALBUMIN 2.9 g/dl (3.4-5.0); BILIRUBIN TOTAL 1.1 mg/dL (0.2-1.0); BUN/CREATININE RATIO 11.4 (14-18); CALCIUM 8.7 mg/dL (8.5-10.1); CREATININE 0.7 mg/dL (0.7-1.3); EST CRCL DRUG DOSING (CG) 145.89 mL/min; PROTEIN TOTAL,TP 6.6 g/dl (6.4-8.2)
[2024-06-16 10:54] LABS: SLIDE REVIEW ABNORMAL SMEAR
[2024-06-16] MEDS: Metoprolol Tartrate 5 MG/5 ML SDV IVPUSH PRN (16:45)
[2024-06-16] MEDS: PHENobarbitaL sodium 130 MG in Sodium Chloride 0.9% 100 ML IV ONE (18:37)
[2024-06-16] MEDS: PHENobarbital Sodium 65 MG/ML SDV IVPUSH ONE (20:09)
[2024-06-16] MEDS: Potassium Chloride 20 MEQ Tab.ER PO ONE (21:54)
[2024-06-17 08:02] LABS: ANION GAP 15.3 (5-15); CALCIUM 8.8 mg/dL (8.5-10.1); CREATININE 0.6 mg/dL (0.7-1.3); EST CRCL DRUG DOSING (CG) 170.2 mL/min; POTASSIUM,K 3.3 mEq/L (3.5-5.1)
[2024-06-17] MEDS ORDERED: Magnesium Sulfate (4.06 MEQ/ML) 5 GM/10 ML SDV IV ONE (11:50)
[2024-06-17] MEDS: Magnesium Sulfate/Water Premix 2 GM in Premix Bag 1 BAG IV ONE ×2 (13:30→13:31)
[2024-06-17] MEDS: Potassium Chloride 20 MEQ Tab.ER PO ONE ×2 (13:31)
[2024-06-17] MEDS: traZODone 50 MG Tab PO SCH (20:55)
[2024-06-18] MEDS: Folic Acid 1 MG Tab PO SCH ×2 (08:20→08:25)
[2024-06-18] MEDS: Thiamine 100 MG Tab PO SCH (08:26)
[2024-06-18] MEDS ORDERED: Thiamine 100 MG Tab PO SCH (09:00)
== END 2024-06-18 09:20 | disposition home or self-care (01) | DRG 432 ==
LOC: JD.ED 10:47 → JD.ICU 13:08
PROVIDERS: ADMIT Family Medicine; ATTEND Family Medicine
DX: K70.10 Alcoholic hepatitis without ascites (principal); A41.9 Sepsis, unspecified organism; R65.20 Severe sepsis without septic shock; J69.0 Pneumonitis due to inhalation of food and vomit; J18.9 Pneumonia, unspecified organism; J96.01 Acute respiratory failure with hypoxia; F10.131 Alcohol abuse with withdrawal delirium; J98.11 Atelectasis; H54.7 Unspecified visual loss; F41.9 Anxiety disorder, unspecified; K21.9 Gastro-esophageal reflux disease without esophagitis; F32.A Depression, unspecified; E86.0 Dehydration; E83.42 Hypomagnesemia; E87.6 Hypokalemia; I11.0 Hypertensive heart disease with heart failure; I50.9 Heart failure, unspecified; E66.9 Obesity, unspecified; R79.89 Other specified abnormal findings of blood chemistry; Z86.16 Personal history of COVID-19; Z79.899 Other long term (current) drug therapy; Z98.890 Other specified postprocedural states; Z90.49 Acquired absence of other specified parts of digestive tract; Z68.27 Body mass index [BMI] 27.0-27.9, adult
CPT/HCPCS: 36415; 36600; 71045; 71045-26; 80048; 80053; 80143; 80179; 80306; 80307; 82550; 82803; 83605; 83690; 83735; 84100; 84484; 85025; 85379; 85610; 87040; 87428-QW; 93005; 93010; 94762; 96361; 96365; 96375; 97116-GP; 97162-GP; 99284; 99285-25; A9270-GY; J0696; J1650; J1836; J1940; J2060; J2405; J2470; J2560; J3360; J3411; J3475; J3490; J7030

== ENCOUNTER 2024-08-24 20:02 | Inpatient (IN) | payer MEDICAID ==
[2024-08-24 20:52] LABS: BASOPHILS ABSOLUTE AUTO 0.1 K/mm3 (0.0-0.2); BASOPHILS PERCENT AUTO 1.4 % (0.0-1.0); EOSINOPHILS ABSOLUTE AUTO 0.2 K/mm3 (0.0-0.4); EOSINOPHILS PERCENT AUTO 4.5 % (0.0-6.0); HEMATOCRIT 38.7 % (42.0-52.0); HEMOGLOBIN 13.1 gm/dl (14.0-18.0); IMMATURE GRAN ABSOLUTE AUTO 0.02 K/mm3 (0.00-0.05); IMMATURE GRAN PERCENT AUTO 0.6 % (0.0-0.4); LYMPHOCYTES PERCENT AUTO 27.8 % (24.0-44.0); MEAN CORPUSCULAR HEMOGLOBIN 32.8 pg (28.0-32.0); MEAN CORPUSCULAR HGB CONC 33.9 g/dl (32.0-36.0); MEAN CORPUSCULAR VOLUME 96.8 fl (83.0-99.0); MEAN PLATELET VOLUME 10.4 fl (9.4-12.4); MONOCYTES ABSOLUTE AUTO 0.6 K/mm3 (0.0-0.8); MONOCYTES PERCENT AUTO 15.9 % (0.0-8.0); NEUTROPHILS ABSOLUTE AUTO 1.8 K/mm3 (1.8-7.7); NEUTROPHILS PERCENT AUTO 49.8 % (41.0-71.0); PLATELET COUNT,PLT 104 K/mm3 (150-400); WHITE BLOOD CELL COUNT,WBC 3.52 K/mm3 (3.9-11.3)
[2024-08-24] MEDS: Sodium Chloride 0.9% 1,000 ML IV ONE (21:08)
[2024-08-24] MEDS: LORazepam 2 MG/ML SDV IVPUSH ONE ×2 (21:08→22:31)
[2024-08-24] MEDS: Sodium Chloride 0.9% 10 ML Syringe FLUSH PRN (21:08)
[2024-08-24] MEDS: Nicotine 14 MG/24 Hr Patch TRDERM ONE (21:08)
[2024-08-24 21:09] LABS: ALBUMIN 3.7 g/dl (3.4-5.0); ANION GAP 20.3 (5-15); BILIRUBIN TOTAL 3.4 mg/dL (0.2-1.0); BUN/CREATININE RATIO 8.3 (14-18); CALCIUM 8.8 mg/dL (8.5-10.1); CREATININE 0.6 mg/dL (0.7-1.3); EST CRCL DRUG DOSING (CG) 168.57 mL/min; ETHANOL BLOOD MEDICAL 0.44 gm% (0.00); MAGNESIUM 1.5 mg/dL (1.8-2.4); POTASSIUM,K 3.3 mEq/L (3.5-5.1); PROTEIN TOTAL,TP 7.4 g/dl (6.4-8.2)
[2024-08-24] MEDS: diphenhydrAMINE 50 MG/ML SDV IVPUSH ONE (21:53)
[2024-08-24] MEDS: Magnesium Sulf/Wat 2 GM/50 mL 2 GM in Premix Bag 1 BAG IV ONE (22:31)
[2024-08-24] MEDS ORDERED: LORazepam 2 MG/ML SDV IV PRN (22:58)
[2024-08-25] MEDS: Thiamine 200 MG/2 ML MDV IVPUSH SCH (02:07)
[2024-08-25] MEDS: Lactated Ringers 1,000 ML IV SCH (02:08)
[2024-08-25] MEDS: LORazepam 2 MG/ML SDV IV PRN (02:12)
[2024-08-25] MEDS: Folic Acid 50 MG/10 ML MDV IV SCH (02:24)
[2024-08-25 02:53] LABS: COLOR,URINE DARK YELLOW (Yellow)
[2024-08-25 02:54] LABS: APPEARANCE,URINE CLEAR (Clear); GLUCOSE,URINE TRACE (Negative); KETONES,URINE 1+ (Negative); PROTEIN,URINE 2+ (Negative)
[2024-08-25 02:55] LABS: BILIRUBIN,URINE 2+ (Negative); NITRITE,URINE NEGATIVE (Negative); OCCULT BLOOD,URINE TRACE-INTACT (Negative); UROBILINOGEN,URINE >=8.0 (0.2-1.0)
[2024-08-25 02:56] LABS: LEUKOCYTE ESTERASE,URINE NEGATIVE (Negative)
[2024-08-25 02:57] LABS: EPITHELIAL CELLS,URINE 0-5 /hpf (0-5); RBC,URINE 0-5 /hpf (0-5); WBC,URINE 0-5 /hpf (0-5)
[2024-08-25 02:58] LABS: BACTERIA,URINE FEW /hpf (FEW); HYALINE CASTS,URINE 0-5 /lpf (0-5); MUCUS,URINE MODERATE /hpf (FEW)
[2024-08-25 03:09] LABS: AMPHETAMINES SCREEN, URINE NEGATIVE (CUTOFF=500); BARBITURATE SCREEN,URINE NEGATIVE (CUTOFF=200); BENZODIAZEPINES SCREEN,URINE NEGATIVE (CUTOFF=150); METHADONE SCREEN, URINE NEGATIVE (CUT0FF=200); METHAMPHETAMINES SCREEN, URINE NEGATIVE (CUTOFF=500); OXYCODONE SCREEN,URINE NEGATIVE (CUT0FF=100); THC SCREEN,URINE 20 NG/ML NEGATIVE (CUTOFF=50)
[2024-08-25 03:10] LABS: BUPRENORPHINE SCREEN,URINE NEGATIVE (CUTOFF=10)
[2024-08-25] MEDS: Ondansetron 4 MG/2 ML SDV IV PRN (03:35)
[2024-08-25 04:47] LABS: BASOPHILS PERCENT AUTO 1.6 % (0.0-1.0); HEMATOCRIT 32.9 % (42.0-52.0); IMMATURE GRAN ABSOLUTE AUTO 0.01 K/mm3 (0.00-0.05); IMMATURE GRAN PERCENT AUTO 0.4 % (0.0-0.4); LYMPHOCYTES ABSOLUTE AUTO 0.8 K/mm3 (1.0-4.8); LYMPHOCYTES PERCENT AUTO 32.5 % (24.0-44.0); MEAN CORPUSCULAR HEMOGLOBIN 32.7 pg (28.0-32.0); MEAN CORPUSCULAR VOLUME 96.2 fl (83.0-99.0); MEAN PLATELET VOLUME 10.4 fl (9.4-12.4); MONOCYTES ABSOLUTE AUTO 0.4 K/mm3 (0.0-0.8); MONOCYTES PERCENT AUTO 17.1 % (0.0-8.0); NEUTROPHILS ABSOLUTE AUTO 1.2 K/mm3 (1.8-7.7); NEUTROPHILS PERCENT AUTO 48.4 % (41.0-71.0); PLATELET COUNT,PLT 76 K/mm3 (150-400); RED BLOOD CELL COUNT 3.42 M/mm3 (4.52-5.90)
[2024-08-25 04:53] LABS: A/G RATIO 0.9 (1-2); ALBUMIN 3.1 g/dl (3.4-5.0); ANION GAP 14.2 (5-15); BILIRUBIN TOTAL 2.7 mg/dL (0.2-1.0); CALCIUM 8.4 mg/dL (8.5-10.1); CREATININE 0.5 mg/dL (0.7-1.3); EST CRCL DRUG DOSING (CG) 189.12 mL/min; POTASSIUM,K 3.2 mEq/L (3.5-5.1); PROTEIN TOTAL,TP 6.4 g/dl (6.4-8.2)
[2024-08-25 04:58] LABS: WHITE BLOOD CELL COUNT,WBC 2.46 K/mm3 (3.9-11.3)
[2024-08-25 04:59] LABS: HEMOGLOBIN 11.2 gm/dl (14.0-18.0)
[2024-08-25 07:23] LABS: SLIDE REVIEW ABNORMAL SMEAR
[2024-08-25] MEDS: Potassium Chloride 20 MEQ Tab.ER PO ONE (09:34)
[2024-08-25] MEDS: Multivitamin Tab PO SCH (09:34)
[2024-08-25] MEDS: Enoxaparin 30 MG/0.3 ML Syringe SUBCUT SCH (11:56)
[2024-08-26 04:40] LABS: BASOPHILS PERCENT AUTO 0.9 % (0.0-1.0); EOSINOPHILS PERCENT AUTO 0.3 % (0.0-6.0); HEMATOCRIT 35.1 % (42.0-52.0); HEMOGLOBIN 11.8 gm/dl (14.0-18.0); IMMATURE GRAN ABSOLUTE AUTO 0.02 K/mm3 (0.00-0.05); IMMATURE GRAN PERCENT AUTO 0.6 % (0.0-0.4); LYMPHOCYTES ABSOLUTE AUTO 0.7 K/mm3 (1.0-4.8); LYMPHOCYTES PERCENT AUTO 19.5 % (24.0-44.0); MEAN CORPUSCULAR HEMOGLOBIN 33.1 pg (28.0-32.0); MEAN CORPUSCULAR HGB CONC 33.6 g/dl (32.0-36.0); MEAN CORPUSCULAR VOLUME 98.6 fl (83.0-99.0); MONOCYTES ABSOLUTE AUTO 0.5 K/mm3 (0.0-0.8); MONOCYTES PERCENT AUTO 13.7 % (0.0-8.0); NEUTROPHILS ABSOLUTE AUTO 2.2 K/mm3 (1.8-7.7); NRBC ABSOLUTE 0.02 (0.00-0.02); NRBC PERCENT 0.6 % (0.0-0.2); PLATELET COUNT,PLT 63 K/mm3 (150-400); RED BLOOD CELL COUNT 3.56 M/mm3 (4.52-5.90); WHITE BLOOD CELL COUNT,WBC 3.44 K/mm3 (3.9-11.3)
[2024-08-26] MEDS: Pantoprazole 40 MG Tab.CR PO SCH (05:22)
[2024-08-26 05:29] LABS: A/G RATIO 0.9 (1-2); ALBUMIN 3.2 g/dl (3.4-5.0); ANION GAP 12.5 (5-15); BILIRUBIN TOTAL 4.5 mg/dL (0.2-1.0); CALCIUM 8.8 mg/dL (8.5-10.1); EST CRCL DRUG DOSING (CG) 189.12 mL/min; POTASSIUM,K 3.5 mEq/L (3.5-5.1)
[2024-08-26 05:58] LABS: CREATININE 0.5 mg/dL (0.7-1.3); PROTEIN TOTAL,TP 6.7 g/dl (6.4-8.2)
[2024-08-26 06:15] LABS: SLIDE REVIEW ABNORMAL SMEAR
[2024-08-26] MEDS: Lactated Ringers 1,000 ML IV SCH (11:25)
[2024-08-26] MEDS: PHENobarbitaL sodium 260 MG in Sodium Chloride 0.9% 100 ML IV ONE (15:21)
[2024-08-26] MEDS: Lactated Ringers 500 ML IV ONE (18:50)
[2024-08-26] MEDS: Sodium Chloride 0.9% 1,000 ML IV SCH (21:25)
[2024-08-26] MEDS: Sodium Chloride 0.9% 500 ML IV ONE (21:52)
[2024-08-27 04:55] LABS: BASOPHILS ABSOLUTE AUTO 0.1 K/mm3 (0.0-0.2); BASOPHILS PERCENT AUTO 1.2 % (0.0-1.0); EOSINOPHILS ABSOLUTE AUTO 0.1 K/mm3 (0.0-0.4); EOSINOPHILS PERCENT AUTO 2.4 % (0.0-6.0); HEMATOCRIT 31.3 % (42.0-52.0); HEMOGLOBIN 10.4 gm/dl (14.0-18.0); IMMATURE GRAN ABSOLUTE AUTO 0.03 K/mm3 (0.00-0.05); IMMATURE GRAN PERCENT AUTO 0.7 % (0.0-0.4); LYMPHOCYTES ABSOLUTE AUTO 0.8 K/mm3 (1.0-4.8); LYMPHOCYTES PERCENT AUTO 18.6 % (24.0-44.0); MEAN CORPUSCULAR HEMOGLOBIN 32.8 pg (28.0-32.0); MEAN CORPUSCULAR HGB CONC 33.2 g/dl (32.0-36.0); MEAN CORPUSCULAR VOLUME 98.7 fl (83.0-99.0); MEAN PLATELET VOLUME 11.8 fl (9.4-12.4); MONOCYTES ABSOLUTE AUTO 0.5 K/mm3 (0.0-0.8); MONOCYTES PERCENT AUTO 11.8 % (0.0-8.0); NEUTROPHILS ABSOLUTE AUTO 2.7 K/mm3 (1.8-7.7); NEUTROPHILS PERCENT AUTO 65.3 % (41.0-71.0); NRBC ABSOLUTE 0.03 (0.00-0.02); NRBC PERCENT 0.7 % (0.0-0.2); PLATELET COUNT,PLT 76 K/mm3 (150-400); RED BLOOD CELL COUNT 3.17 M/mm3 (4.52-5.90); WHITE BLOOD CELL COUNT,WBC 4.14 K/mm3 (3.9-11.3)
[2024-08-27 05:24] LABS: A/G RATIO 0.8 (1-2); ALBUMIN 2.7 g/dl (3.4-5.0); ANION GAP 14.3 (5-15); BILIRUBIN TOTAL 4.3 mg/dL (0.2-1.0); CALCIUM 8.5 mg/dL (8.5-10.1); EST CRCL DRUG DOSING (CG) 189.12 mL/min; POTASSIUM,K 3.3 mEq/L (3.5-5.1)
[2024-08-27 05:41] LABS: CREATININE 0.5 mg/dL (0.7-1.3); PROTEIN TOTAL,TP 5.9 g/dl (6.4-8.2)
[2024-08-27 06:33] LABS: SLIDE REVIEW ABNORMAL SMEAR
[2024-08-27] MEDS: Potassium Chloride 20 MEQ Tab.ER PO ONE (08:38)
[2024-08-27] MEDS: Magnesium Sulf/Wat 4 GM/50 mL 4 GM in Premix Bag 1 BAG IV ONE (11:13)
[2024-08-27] MEDS: Nicotine 14 MG/24 Hr Patch TRDERM SCH (17:53)
[2024-08-28 05:28] LABS: HEMATOCRIT 31.6 % (42.0-52.0); HEMOGLOBIN 10.4 gm/dl (14.0-18.0); MEAN CORPUSCULAR HGB CONC 32.9 g/dl (32.0-36.0); MEAN CORPUSCULAR VOLUME 100.3 fl (83.0-99.0); MEAN PLATELET VOLUME 10.9 fl (9.4-12.4); PLATELET COUNT,PLT 79 K/mm3 (150-400); RED BLOOD CELL COUNT 3.15 M/mm3 (4.52-5.90); WHITE BLOOD CELL COUNT,WBC 2.74 K/mm3 (3.9-11.3)
[2024-08-28 05:52] LABS: A/G RATIO 0.8 (1-2); ALBUMIN 2.4 g/dl (3.4-5.0); ANION GAP 11.3 (5-15); BILIRUBIN TOTAL 3.3 mg/dL (0.2-1.0); CALCIUM 8.3 mg/dL (8.5-10.1); CREATININE 0.4 mg/dL (0.7-1.3); EST CRCL DRUG DOSING (CG) 252.85 mL/min; MAGNESIUM 1.8 mg/dL (1.8-2.4); POTASSIUM,K 3.3 mEq/L (3.5-5.1); PROTEIN TOTAL,TP 5.5 g/dl (6.4-8.2)
[2024-08-28] MEDS: Potassium Chloride 20 MEQ Tab.ER PO ONE (12:35)
[2024-08-28] MEDS: Acetaminophen 325 MG Tab PO PRN (12:49)
[2024-08-29 05:41] LABS: HEMATOCRIT 32.4 % (42.0-52.0); HEMOGLOBIN 10.8 gm/dl (14.0-18.0); MEAN CORPUSCULAR HEMOGLOBIN 33.3 pg (28.0-32.0); MEAN CORPUSCULAR HGB CONC 33.3 g/dl (32.0-36.0); MEAN PLATELET VOLUME 10.6 fl (9.4-12.4); PLATELET COUNT,PLT 120 K/mm3 (150-400); RED BLOOD CELL COUNT 3.24 M/mm3 (4.52-5.90); WHITE BLOOD CELL COUNT,WBC 3.53 K/mm3 (3.9-11.3)
[2024-08-29 07:51] LABS: A/G RATIO 0.8 (1-2); ALBUMIN 2.7 g/dl (3.4-5.0); ANION GAP 13.7 (5-15); BILIRUBIN TOTAL 3.4 mg/dL (0.2-1.0); CALCIUM 8.7 mg/dL (8.5-10.1); CREATININE 0.5 mg/dL (0.7-1.3); EST CRCL DRUG DOSING (CG) 202.28 mL/min; MAGNESIUM 1.4 mg/dL (1.8-2.4); POTASSIUM,K 3.7 mEq/L (3.5-5.1)
[2024-08-29] MEDS: Thiamine 100 MG Tab PO SCH (08:07)
[2024-08-29] MEDS: Folic Acid 1 MG Tab PO SCH (08:07)
[2024-08-29] MEDS: Magnesium Sulf/Wat 2 GM/50 mL 2 GM in Premix Bag 1 BAG IV ONE (09:35)
== END 2024-08-29 11:50 | disposition home or self-care (01) | DRG 896 ==
LOC: JD.ED 20:02 → JD.ICU 22:19
PROVIDERS: ADMIT Family Medicine; ATTEND Family Medicine
DX: F10.139 Alcohol abuse with withdrawal, unspecified (principal); K85.20 Alcohol induced acute pancreatitis without necrosis or infection; H54.7 Unspecified visual loss; I10 Essential (primary) hypertension; K21.9 Gastro-esophageal reflux disease without esophagitis; F41.9 Anxiety disorder, unspecified; F32.A Depression, unspecified; E66.9 Obesity, unspecified; E83.42 Hypomagnesemia; E87.6 Hypokalemia; K70.10 Alcoholic hepatitis without ascites; E86.0 Dehydration; Z88.8 Allergy status to other drugs, medicaments and biological substances; Z79.2 Long term (current) use of antibiotics; Z68.26 Body mass index [BMI] 26.0-26.9, adult; Z86.16 Personal history of COVID-19; Z98.890 Other specified postprocedural states; Z90.49 Acquired absence of other specified parts of digestive tract
CPT/HCPCS: 36415; 70450; 70450-26; 71045; 71045-26; 72125; 72125-26; 72170; 72170-26; 73060-26-RT; 73060-RT; 73552-26-RT; 73552-RT; 80053; 80143; 80179; 80306; 80307; 81001; 83690; 83735; 85025; 85027; 93005; 93010; 96361; 96374; 96375; 97116-GP; 97162-GP; 99284; 99285-25; A9270-GY; J1200; J2060; J2405; J2560; J3411; J3475; J3490; J7030; J7120

== ENCOUNTER 2024-10-24 10:49 | Emergency (ER) | payer MEDICAID ==
[2024-10-24 11:15] LABS: HEMATOCRIT 29.1 % (42.0-52.0); HEMOGLOBIN 9.8 gm/dl (14.0-18.0); IMMATURE GRAN ABSOLUTE AUTO 0.07 K/mm3 (0.00-0.05); IMMATURE GRAN PERCENT AUTO 1.1 % (0.0-0.4); LYMPHOCYTES ABSOLUTE AUTO 0.5 K/mm3 (1.0-4.8); LYMPHOCYTES PERCENT AUTO 8.1 % (24.0-44.0); MEAN CORPUSCULAR HEMOGLOBIN 32.5 pg (28.0-32.0); MEAN CORPUSCULAR HGB CONC 33.7 g/dl (32.0-36.0); MEAN PLATELET VOLUME 10.2 fl (9.4-12.4); MONOCYTES ABSOLUTE AUTO 0.3 K/mm3 (0.0-0.8); MONOCYTES PERCENT AUTO 4.9 % (0.0-8.0); NEUTROPHILS ABSOLUTE AUTO 5.6 K/mm3 (1.8-7.7); NEUTROPHILS PERCENT AUTO 85.9 % (41.0-71.0); NRBC ABSOLUTE 0.03 (0.00-0.02); NRBC PERCENT 0.5 % (0.0-0.2); PLATELET COUNT,PLT 70 K/mm3 (150-400); RED BLOOD CELL COUNT 3.02 M/mm3 (4.52-5.90); WHITE BLOOD CELL COUNT,WBC 6.53 K/mm3 (3.9-11.3)
[2024-10-24 11:17] LABS: MEAN CORPUSCULAR VOLUME 96.4 fl (83.0-99.0)
[2024-10-24 11:21] LABS: PTT,PARTIAL THROMBOPLSTIN TIME 88.8 SECONDS (21.7-31.4)
[2024-10-24 11:25] LABS: INR 7.49; PROTHROMBIN TIME 69.6 SECONDS (9.7-12.0)
[2024-10-24 11:34] LABS: A/G RATIO 0.3 (1-2); ALBUMIN 1.1 g/dl (3.4-5.0); ALKALINE PHOSPHATASE 181 U/L (46-116); ANION GAP 29.8 (5-15); BILIRUBIN TOTAL 22.6 mg/dL (0.2-1.0); BLOOD UREA NITROGEN,BUN 38 mg/dL (7-18); BUN/CREATININE RATIO 7.5 (14-18); CARBON DIOXIDE,CO2 16 mEq/L (21-32); CHLORIDE,CL 76 mEq/L (98-107); ESTIMATED GFR 14 mL/min (>60); MAGNESIUM 1.6 mg/dL (1.8-2.4)
[2024-10-24 11:50] LABS: SLIDE REVIEW ABNORMAL SMEAR
[2024-10-24 11:52] LABS: LACTIC ACID 17.9 mmol/L (0.4-2.0)
[2024-10-24 11:59] LABS: GLUCOSE RANDOM 78 mg/dL (70-99); PROTEIN TOTAL,TP 4.8 g/dl (6.4-8.2); SODIUM,NA 118 mEq/L (136-145)
[2024-10-24 12:00] LABS: ASPARTATE AMNIOTRANSFERASE,AST 438 U/L (15-37); CREATININE 5.1 mg/dL (0.7-1.3); POTASSIUM,K 3.8 mEq/L (3.5-5.1)
[2024-10-24 12:01] LABS: ALANINE AMINOTRANSFERASE,ALT 51 U/L (16-63)
[2024-10-24 12:12] LABS: BASE EXCESS VENOUS -9.8 (-4.0-2.0); BICARBONATE,VENOUS 12.6 meq/L (22-26); O2 SATURATION VENOUS 79.4; PH,VENOUS 7.43 (7.30-7.40)
[2024-10-24] MEDS: FOLIC ACID IV SCH (12:18)
[2024-10-24] MEDS: THIAMINE 100 MG IV SCH (12:18)
[2024-10-24] MEDS: MAGNESIUM SULFATE 2 GM IV SCH (12:18)
[2024-10-24] MEDS: SODIUM CHLORIDE IV SCH (12:18)
[2024-10-24] MEDS: MULTIVITAMIN IV SCH (12:18)
[2024-10-24] MEDS: Sodium Chloride 0.9% 1,000 ML IV ONE (13:00)
[2024-10-24] MEDS: Pantoprazole 40 MG Vial IVPUSH ONE (13:01)
[2024-10-24] MEDS: Midazolam 1 MG/ML 2 ML SDV IVPUSH ONE ×3 (13:31→14:01)
[2024-10-24] MEDS: Midazolam 1 MG/ML 2 ML SDV ONE ×2 (14:21)
[2024-10-24] MEDS: Lactated Ringers 1,000 ML IV ONE (15:45)
[2024-10-24] MEDS: Piperacillin/Tazobactam 4.5 GM in Sodium Chloride 0.9% 100 ML IV ONE (15:55)
[2024-10-24] MEDS: Sodium Chloride 0.9% 100 ML ONE (16:26)
[2024-10-24] MEDS: Piperacillin/Tazobactam 4.5 GM Vial ONE (16:49)
== END 2024-10-24 16:30 ==
LOC: JD.ED 10:49
DX: E87.1 Hypo-osmolality and hyponatremia (principal); K72.00 Acute and subacute hepatic failure without coma; N17.9 Acute kidney failure, unspecified; I10 Essential (primary) hypertension; E66.9 Obesity, unspecified; Z86.16 Personal history of COVID-19; Z88.8 Allergy status to other drugs, medicaments and biological substances
CPT/HCPCS: 36415; 36430; 70450; 70450-26; 71045; 71045-26; 71250; 71250-26; 74176; 74176-26; 80053; 80307; 82140; 82803; 83605; 83735; 85025; 85610; 85730; 86900; 86901; 87040; 93005; C1751; J2250; J2470; J2543; J3411; J3490; J7030; J7120; P9017